=== PATIENT | male | born 1960 | race Caucasian/White ===

== ENCOUNTER → 2016-10-14 | Outpatient (CLI) | payer BC ==
[2016-10-14 08:39] LABS: CHLORIDE,CL 101 mmol/L (98-110); SODIUM,NA 136 mmol/L (136-146)
== END ==
LOC: MW.CHFP 07:49
PROVIDERS: ATTEND Nurse Practitioner Family
DX: E11.9 Type 2 diabetes mellitus without complications (principal); R80.9 Proteinuria, unspecified
CPT/HCPCS: 36415; 80053; 80061; 82044; 83036

== ENCOUNTER 2017-08-24 10:02 | Emergency (ER) | payer BC ==
--- NOTE | 2017-08-24 10:32 | EDM.PDOC ---
ED HPI GENERAL MEDICAL PROBLEM - General Chief Complaint: Abdominal Pain Stated Complaint: L LOWER ABD Time Seen by Provider: 08/24/17 10:32 Source of Information: Reports: Patient - History of Present Illness INITIAL COMMENTS - FREE TEXT/NARRATIVE: HISTORY AND PHYSICAL: History of present illness: [Patient with history of diverticulitis present with left lower quadrant pain 4 out of 10 increasing over last 24-48 hours no distress rates pain 3 out of 10 no fever vomiting chills sweats No chest pain shortness breath headache dizziness palpitation no urine symptoms ] Review of systems: As per history of present illness and below otherwise all systems reviewed and negative. Past medical history: As per history of present illness and as reviewed below otherwise noncontributory. Surgical history: As per history of present illness and as reviewed below otherwise noncontributory. Social history: No reported history of drug or alcohol abuse. Family history: As per history of present illness and as reviewed below otherwise noncontributory. Physical exam: HEENT: Atraumatic, normocephalic, pupils reactive, negative for conjunctival pallor or scleral icterus, mucous membranes moist, throat clear, neck supple, nontender, trachea midline. Lungs: Clear to auscultation, breath sounds equal bilaterally, chest nontender. Heart: S1S2, regular, negative for clicks, rubs, or JVD. Abdomen: Soft, nondistended, nontender in right upper and lower quadrant left lower quadrant is tender on deep palpation. Negative for masses or hepatosplenomegaly. Negative for costovertebral tenderness. Pelvis: Stable nontender. Genitourinary: No hernia appreciated no mass scar or lesion Rectal: Deferred. Extremities: Atraumatic, negative for cords or calf pain. Neurovascular unremarkable. Neuro: Awake, alert, oriented. Cranial nerves II through XII unremarkable. Cerebellum unremarkable. Motor and sensory unremarkable throughout. Exam nonfocal. Diagnostics: [CBC CMP cardiac enzymes UA ] Therapeutics: [Patient declines any pain medication at this time his pain is quite tolerable] Cipro 500 by mouth twice a day #20 no refill Impression: Mild diverticulitis [Abdominal pain] Definitive disposition and diagnosis as appropriate pending reevaluation and review of above. Left Lower Abdominal Pain Score (Numeric/FACES): 5 - Related Data Allergies Allergy/AdvReac Type Severity Reaction Status Date / Time No Known Allergies Allergy Verified 08/24/17 10:32 Home Meds: Home Meds Lisinopril [Lisinopril] 10 mg PO DAILY 02/20/15 [History] Simvastatin [Simvastatin] 10 mg PO DAILY 02/20/15 [History] metFORMIN HCl [Metformin HCl] 1,000 mg PO BID 02/20/15 [History] Aspirin [Halfprin] 81 mg PO ONETIME 05/21/15 [History] Glimepiride [Amaryl] 4 mg PO BID 05/21/15 [History] Chlorthalidone 25 mg PO DAILY 08/24/17 [History] Dapagliflozin Propanediol [Farxiga] 10 mg PO DAILY 08/24/17 [History] Krill/[place]-3/Dha/Epa/Lipids [[place]-3 Krill Oil 500 mg Sfgl] 1 cap PO DAILY [History] Social & Family History - Tobacco Use Smoking Status *Q: Never Smoker Second Hand Smoke Exposure: No - Recreational Drug Use Recreational Drug Use: No ED ROS GENERAL - Review of Systems Review Of Systems: ROS reveals no pertinent complaints other than HPI. ED EXAM, GENERAL - Physical Exam Exam: See Below Course - Vital Signs Last Recorded V/S: Last Vital Signs Temp 96.7 F 08/24/17 10:30 Pulse 102 H 08/24/17 11:39 Resp 18 08/24/17 11:39 BP 98/71 08/24/17 11:39 Pulse Ox 96 08/24/17 11:39 - Orders/Labs/Meds Orders: Active Orders 24 hr Category Date Time Status EKG 12 Lead [EKG Documentation Completion] [RC] STAT Care 08/24/17 10:31 Active Labs: Laboratory Tests 08/24/17 08/24/17 08/24/17 Range/Units 10:40 10:50 10:50 WBC 9.88 (4.0-11.0) K/uL RBC 4.88 (4.50-5.90) M/uL Hgb 15.8 (13.0-17.0) g/dL Hct 45.8 (38.0-50.0) % MCV 93.9 (80.0-98.0) fL MCH 32.4 H (27.0-32.0) pg MCHC 34.5 (31.0-37.0) g/dL RDW Std Deviation 45.5 (28.0-62.0) fl RDW Coeff of Brianna 13 (11.0-15.0) % Plt Count 249 (150-400) K/uL MPV 9.90 (7.40-12.00) fL Neut % (Auto) 78.2 (48.0-80.0) % Lymph % (Auto) 13.6 L (16.0-40.0) % [place] % (Auto) 6.6 (0.0-15.0) % Eos % (Auto) 1.2 (0.0-7.0) % Baso % (Auto) 0.4 (0.0-1.5) % Neut # (Auto) 7.7 H (1.4-5.7) K/uL Lymph # (Auto) 1.3 (0.6-2.4) K/uL [place] # (Auto) 0.7 (0.0-0.8) K/uL Eos # (Auto) 0.1 (0.0-0.7) K/uL Baso # (Auto) 0.0 (0.0-0.1) K/uL Nucleated RBC % 0.0 /100WBC Nucleated RBCs # 0 K/uL Sodium 136 (136-146) mmol/L Potassium 4.2 (3.5-5.1) mmol/L Chloride 99 (98-110) mmol/L Carbon Dioxide 25 (21-31) mmol/L BUN 16 (6.0-23.0) mg/dL Creatinine 1.1 (0.6-1.5) mg/dL Est Cr Clr Drug Dosing 78.91 mL/min Estimated GFR (MDRD) > 60.0 ml/min Glucose 168 H (60-110) mg/dL Calcium 9.7 (8.8-10.8) mg/dL Total Bilirubin 0.6 (0.1-1.5) mg/dL AST 13 (5-40) IU/L ALT 19 (8-54) IU/L Alkaline Phosphatase 64 (40-150) Troponin I < 0.10 (0.0-0.29) NG/ML Total Protein 7.6 (6.0-8.0) g/dL Albumin 4.4 (3.5-5.0) g/dL Globulin 3.2 (2.0-3.5) g/dL Albumin/Globulin Ratio 1.4 (1.3-2.8) Amylase 70 (10-90) U/L Lipase 29 (7-80) U/L Urine Color YELLOW Urine Appearance CLEAR Urine pH 6.0 (5.0-8.0) Ur Specific [place] 1.015 (1.001-1.035) Urine Protein NEGATIVE (NEGATIVE) mg/dL Urine Glucose (UA) >=1000 (NEGATIVE) mg/dL Urine Ketones NEGATIVE (NEGATIVE) mg/dL Urine Occult Blood NEGATIVE (NEGATIVE) Urine Nitrite NEGATIVE (NEGATIVE) Urine Bilirubin NEGATIVE (NEGATIVE) Urine Urobilinogen 0.2 (<2.0) EU/dL Ur Leukocyte Esterase NEGATIVE (NEGATIVE) Urine RBC 0-1 (0-2/HPF) Urine WBC 0-1 (0-5/HPF) Ur Epithelial Cells OCCASIONAL (NONE-FEW) Urine Bacteria RARE (NEGATIVE) Urine Mucus LIGHT (NONE-MOD) Departure - Departure Time of Disposition: 12:31 Disposition: Home, Self-Care 01 Condition: Good Clinical Impression: Diverticulitis - Discharge Information Referrals: Hali Burgos NP [Primary Care Provider] - Forms: ED Department Discharge Additional Instructions: Medication as prescribed Diet as discussed Return if symptoms persist or worsen or new concerning symptoms develop The following information is given to patients seen in the emergency department who are being discharged to home. This information is to outline your options for follow-up care. We provide all patients seen in our emergency department with a follow-up referral. The need for follow-up, as well as the timing and circumstances, are variable depending upon the specifics of your emergency department visit. If you don't have a primary care physician on staff, we will provide you with a referral. We always advise you to contact your personal physician following an emergency department visit to inform them of the circumstance of the visit and for follow-up with them and/or the need for any referrals to a consulting specialist. The emergency department will also refer you to a specialist when appropriate. This referral assures that you have the opportunity for follow-up care with a specialist. All of these measure are taken in an effort to provide you with optimal care, which includes your follow-up. Under all circumstances we always encourage you to contact your private physician who remains a resource for coordinating your care. When calling for follow-up care, please make the office aware that this follow-up is from your recent emergency room visit. If for any reason you are refused follow-up, please contact the [facility] emergency department at and asked to speak to the emergency department charge nurse. - My Orders Last 24 Hours: My Active Orders 08/24/17 10:31 EKG 12 Lead [EKG Documentation Completion] [RC] STAT - Assessment/Plan Last 24 Hours: My Active Orders 08/24/17 10:31 EKG 12 Lead [EKG Documentation Completion] [RC] STAT
[2017-08-24 11:37] LABS: CHLORIDE,CL 99 mmol/L (98-110); SODIUM,NA 136 mmol/L (136-146)
--- NOTE | 2017-08-24 12:23 | CR ---
Flat plate and upright films of the abdomen Clinical history pain Comparison: No similar Findings: There is no evidence of free air below the diaphragms. There is no evidence of significantl y dilated bowel. There is a likely lower pole renal calculus on the right with no definite evidence o f a calculus in the expected location of the ureter on the right. Images are degraded by patient's ob esity. Impression: Right nephrolithiasis. No other specific abnormal finding
[2017-08-24 12:49] VITALS: BP 105/66
== END 2017-08-24 12:39 | disposition home or self-care (01) ==
LOC: MW.ED 10:02
DX: K57.92 Diverticulitis of intestine, part unspecified, without perforation or abscess without bleeding (principal); Z79.84 Long term (current) use of oral hypoglycemic drugs; Z79.899 Other long term (current) drug therapy; Z79.82 Long term (current) use of aspirin
CPT/HCPCS: 36415; 74019; 74019-26; 80053; 81001; 82150; 83690; 84484; 85025; 93005; 99284-25

== ENCOUNTER 2017-12-04 09:51 | Day surgery (SDC) | payer BC ==
[~2017-12-04 09:51] MED LIST: Lactated Ringers 1,000 ML IV SCH; Lidocaine 2% 5 ML SDV ONE; Propofol 200 MG/20 ML SDV ONE; fentaNYL 100 MCG/2 ML SDV ONE
--- NOTE | 2017-12-04 10:26 | PCM.PREANE ---
Preanesthetic Assessment - Anesthesia/Transfusion/Family Hx Anesthesia History: Prior Anesthesia Without Reaction Family History of Anesthesia Reaction: No Transfusion History: No Prior Transfusion(s) Intubation History: Unknown - Review of Systems General: No Symptoms Pulmonary: No Symptoms Cardiovascular: No Symptoms Gastrointestinal: No Symptoms, Other (recent diverticulitis) Neurological: No Symptoms Other: Reports: None - Physical Assessment O2 Sat by Pulse Oximetry: 94 Respiratory Rate: 16 Vital Signs: Last Vital Signs Temp 36.4 C 12/04/17 10:16 Pulse 98 12/04/17 10:16 Resp 16 12/04/17 10:16 BP 130/82 12/04/17 10:16 Pulse Ox 94 L 12/04/17 10:16 Height: 1.8 m Weight: 131.995 kg ASA Class: 3 Mental Status: Alert & Oriented x3 Airway Class: Mallampati = 2 Dentition: Reports: Normal Dentition, Bridge (left lower (back)) Thyro-Mental Finger Breadths: 3 Mouth Opening Finger Breadths: 2 ROM/Head Extension: Full Lungs: Clear to Auscultation, Normal Respiratory Effort Cardiovascular: Regular Rate, Regular Rhythm - Allergies Allergies/Adverse Reactions: Allergies Allergy/AdvReac Type Severity Reaction Status Date / Time No Known Allergies Allergy Verified 12/02/17 07:39 - Blood Blood Available: No - Anesthesia Plan Pre-Op Medication Ordered: None - Acknowledgements Anesthesia Type Planned: MAC Pt an Appropriate Candidate for the Planned Anesthesia: Yes Alternatives and Risks of Anesthesia Discussed w Pt/Guardian: Yes Pt/Guardian Understands and Agrees with Anesthesia Plan: Yes PreAnesthesia Questionnaire Cardiovascular History: Reports: High Cholesterol, Hypertension Gastrointestinal History: Reports: GERD, Other (See Below) Other Gastrointestinal History: recent h/o diverticulitis, much better now Genitourinary History: Reports: Renal Calculus Endocrine/Metabolic History: Reports: Diabetes, Type II, Obesity/BMI 30+ - Infectious Disease History Infectious Disease History: Reports: Chicken Pox, Measles, Mumps - Past Surgical History Head Surgeries/Procedures: Reports: None Male Surgical History: Reports: Lithotripsy (ESWL), Renal Calculus - SUBSTANCE USE Smoking Status *Q: Never Smoker Second Hand Smoke Exposure: No Recreational Drug Use History: No - HOME MEDS Home Medications: Home Meds Lisinopril 10 mg PO DAILY 02/20/15 [History] Simvastatin 10 mg PO DAILY 02/20/15 [History] metFORMIN HCl [Metformin HCl] 1,000 mg PO BID 02/20/15 [History] Aspirin [Halfprin] 81 mg PO DAILY 05/21/15 [History] Chlorthalidone 25 mg PO DAILY 08/24/17 [History] Dapagliflozin Propanediol [Farxiga] 10 mg PO DAILY 08/24/17 [History] Glimepiride 4 mg PO BID 12/02/17 [History] - CURRENT (IN HOUSE) MEDS Current Meds: Current Medications Lactated Ringer's (Ringers, Lactated) 1,000 mls @ 125 mls/hr IV ASDIRECTED ARLYN Last Admin: 12/04/17 10:17 Dose: 125 mls/hr Discontinued Medications Fentanyl (Sublimaze) Confirm Administered Dose 100 mcg .ROUTE .STK-MED ONE Stop: 12/04/17 08:47 Lidocaine (Xylocaine-Mpf 2%) Confirm Administered Dose 5 ml .ROUTE .STK-MED ONE Stop: 12/04/17 08:46 Propofol (Diprivan 20 Ml) Confirm Administered Dose 400 mg .ROUTE .STK-MED ONE Stop: 12/04/17 08:47
--- NOTE | 2017-12-04 11:22 | PCM.OPNOTE ---
- General Post-Op/Procedure Note Date of Surgery/Procedure: 12/04/17 Operative Procedure(s): Colonoscopy Pre Op Diagnosis: Desire for colorectal cancer screening Post-Op Diagnosis: Sigmoid diverticulosis Anesthesia Technique: MAC (ASA III) Primary Surgeon: Rafal Hickman Condition: Good Free Text/Narrative:: Dictation [id number] CPT CODE 26087
[2017-12-04] MEDS ORDERED: Lactated Ringers 1,000 ML IV SCH (11:30)
[2017-12-04 12:09] VITALS: BP 117/75
--- NOTE | 2017-12-04 12:40 | PCM.POSTAN ---
POST ANESTHESIA ASSESSMENT - MENTAL STATUS Mental Status: Alert, Oriented - RESPIRATORY Respiratory Status: Respiratory Rate WNL, Airway Patent, O2 Saturation Stable - CARDIOVASCULAR CV Status: Pulse Rate WNL, Blood Pressure Stable - GASTROINTESTINAL GI Status: No Symptoms - POST OP HYDRATION Hydration Status: Adequate & Stable
--- NOTE | 2017-12-04 12:43 | PCM48HPAN ---
Post Anesthesia Note - EVALUATION WITHIN 48HRS OF ANESTHETIC Vital Signs in Normal Range: Yes Patient Participated in Evaluation: Yes Respiratory Function Stable: Yes Airway Patent: Yes Cardiovascular Function Stable: Yes Hydration Status Stable: Yes Pain Control Satisfactory: Yes Nausea and Vomiting Control Satisfactory: Yes Mental Status Recovered: Yes Resp Rate: 16
--- NOTE | 2017-12-04 16:55 | OR ---
SURGEON: Rafal Hickman M.D. DATE OF PROCEDURE: 12/04/2017 OPERATION PERFORMED: Colonoscopy. ANESTHESIA: MAC. CITIZEN OF [place] [employer] CLASSIFICATION: III. PREOPERATIVE DIAGNOSIS: Desire for colorectal cancer screening. POSTOPERATIVE DIAGNOSIS: Sigmoid diverticulosis. DESCRIPTION OF PROCEDURE: The patient was taken to the endoscopy room and positioned on the endoscopy table in the left lateral decubitus position. Time-out was called for appropriate identification of the patient and procedure. Monitored anesthesia care was provided. The colonoscope was inserted into the rectum and advanced with minimal difficulty to the cecum, where the colonoscope was retroflexed to visualize the ascending colon from below. The colonoscope was then straightened and slowly withdrawn. The cecum, ascending colon, hepatic flexure, transverse colon, splenic flexure, and descending colon showed no tumors, polyps, diverticula, or angiodysplastic changes. There was no evidence of inflammatory bowel disease. Once the colonoscope was withdrawn to the sigmoid colon, moderate diverticular disease is noted. No stricture, spasm, or bleeding was noted; and no polyps were encountered in the sigmoid colon. Once the colonoscope was withdrawn to the rectum, it was retroflexed to visualize the anal orifice from above. No tumors, polyps, or acute hemorrhoidal changes are noted. The colonoscope was then straightened, the rectum aspirated, and the colonoscope removed. The patient tolerated the procedure well and was taken to the recovery room in satisfactory condition. CLARENCE RICO /[id number]
== END 2017-12-04 11:40 | disposition home or self-care (01) ==
LOC: MW.SDS 09:51
PROVIDERS: ATTEND Surgery
DX: Z12.11 Encounter for screening for malignant neoplasm of colon (principal); K57.30 Diverticulosis of large intestine without perforation or abscess without bleeding; K21.9 Gastro-esophageal reflux disease without esophagitis; J30.9 Allergic rhinitis, unspecified; E78.00 Pure hypercholesterolemia, unspecified; E78.1 Pure hyperglyceridemia; I10 Essential (primary) hypertension; M75.40 Impingement syndrome of unspecified shoulder; M17.11 Unilateral primary osteoarthritis, right knee; R80.9 Proteinuria, unspecified; E11.9 Type 2 diabetes mellitus without complications; E66.9 Obesity, unspecified; Z68.41 Body mass index [BMI] 40.0-44.9, adult; Z79.82 Long term (current) use of aspirin; Z79.84 Long term (current) use of oral hypoglycemic drugs; Z79.899 Other long term (current) drug therapy; Z98.890 Other specified postprocedural states
CPT/HCPCS: 82962; J2704; J3010; J7120

== ENCOUNTER 2018-12-10 17:07 | Emergency (ER) | payer BC ==
[2018-12-10] MEDS ORDERED: Sodium Chloride 0.9% 10 ML Syringe FLUSH PRN (17:33)
[2018-12-10] MEDS ORDERED: Sodium Chloride 0.9% 1,000 ML IV ONE (17:33)
[2018-12-10] MEDS ORDERED: Sodium Chloride 0.9% 2.5 ML Syringe FLUSH PRN (17:33)
[2018-12-10] MEDS ORDERED: Meclizine 25 MG Tab PO ONE (17:34)
--- NOTE | 2018-12-10 17:37 | EDM.PDOC ---
ED HPI GENERAL MEDICAL PROBLEM - General Chief Complaint: General Stated Complaint: DIZZY Time Seen by Provider: 12/10/18 17:24 - History of Present Illness INITIAL COMMENTS - FREE TEXT/NARRATIVE: HISTORY AND PHYSICAL: History of present illness: Patient's 58-year-old white male presents with a concern of dizziness since last night he states this is with any movement or change in position he states he went to sleep with that awoke with a and has difficulty walking due to unsteadiness related to what he describes as dizziness this is somewhat vaguely described is not qualified as particularly spinning or himself more as an unsteadiness. Review of systems: As per history of present illness and below otherwise all systems reviewed and negative. Past medical history: As per history of present illness and as reviewed below otherwise noncontributory. Surgical history: As per history of present illness and as reviewed below otherwise noncontributory. Social history: No reported history of drug or alcohol abuse. Family history: As per history of present illness and as reviewed below otherwise noncontributory. Physical exam: HEENT: Atraumatic, normocephalic, pupils reactive, negative for conjunctival pallor or scleral icterus, mucous membranes moist, throat clear, neck supple, nontender, trachea midline. TMs clear bilaterally Lungs: Clear to auscultation, breath sounds equal bilaterally, chest nontender. Heart: S1S2, regular, negative for clicks, rubs, or JVD. Abdomen: Soft, nondistended, nontender. Negative for masses or hepatosplenomegaly. Negative for costovertebral tenderness. Pelvis: Stable nontender. Genitourinary: Deferred. Rectal: Deferred. Extremities: Atraumatic, negative for cords or calf pain. Neurovascular unremarkable. Neuro: Awake, alert, oriented. Cranial nerves II through XII unremarkable. Ataxic gait noted. Motor and sensory unremarkable throughout. Exam nonfocal. Diagnostics: CBC CMP troponin PT/INR chest x-ray EKG CT brain orthostatic vital signs Therapeutics: Saline 1 L bolus meclizine 25 mg by mouth Impression: #1 dizziness with ataxia Definitive disposition and diagnosis as appropriate pending reevaluation and review of above. - Related Data Allergies Allergy/AdvReac Type Severity Reaction Status Date / Time No Known Allergies Allergy Verified 12/10/18 17:28 Home Meds: Home Meds Lisinopril 10 mg PO DAILY 02/20/15 [History] Simvastatin 10 mg PO DAILY 02/20/15 [History] metFORMIN HCl [Metformin HCl] 1,000 mg PO BID 02/20/15 [History] Aspirin [Halfprin] 81 mg PO DAILY 05/21/15 [History] Chlorthalidone 25 mg PO DAILY 08/24/17 [History] Allopurinol [Zyloprim] 300 mg PO DAILY 12/10/18 [History] Dulaglutide [Trulicity] 1.5 mg IM WEEKLY 12/10/18 [History] Empagliflozin [Jardiance] 10 mg PO DAILY 12/10/18 [History] Past Medical History Cardiovascular History: Reports: High Cholesterol, Hypertension Gastrointestinal History: Reports: GERD, Other (See Below) Other Gastrointestinal History: recent h/o diverticulitis, much better now Genitourinary History: Reports: Renal Calculus Musculoskeletal History: Reports: Gout Endocrine/Metabolic History: Reports: Diabetes, Type II, Obesity/BMI 30+ - Infectious Disease History Infectious Disease History: Reports: Chicken Pox, Measles, Mumps - Past Surgical History Head Surgeries/Procedures: Reports: None Male Surgical History: Reports: Lithotripsy (ESWL), Renal Calculus Social & Family History - Family History Family Medical History: Noncontributory - Tobacco Use Smoking Status *Q: Never Smoker - Recreational Drug Use Recreational Drug Use: No ED ROS GENERAL - Review of Systems Review Of Systems: ROS reveals no pertinent complaints other than HPI. ED EXAM, GENERAL - Physical Exam Exam: See Below (Dictation) Course - Vital Signs Text/Narrative:: Patient emergency department course has been unremarkable he has improvement status post meclizine diagnostics were unremarkable I discussed with patient admission for observation patient requests discharge home he understands risks and benefit has a scheduled appointment was private doctor mildly be discharged on meclizine is a return for recurrence or persistence or worsening. Last Recorded V/S: Last Vital Signs Temp 36.1 C 12/10/18 17:23 Pulse 92 12/10/18 19:02 Resp 18 12/10/18 19:02 BP 133/85 12/10/18 19:02 Pulse Ox 94 L 12/10/18 19:02 - Orders/Labs/Meds Orders: Active Orders 24 hr Category Date Time Status Cardiac Monitoring [RC] . DIRECTED Care 12/10/18 17:33 Active EKG Documentation Completion [RC] STAT Care 12/10/18 17:33 Active Pulse Oximetry [RC] ASDIRECTED Care 12/10/18 17:33 Active Sodium Chloride 0.9% [Saline Flush] Med 12/10/18 17:33 Active 10 ml FLUSH ASDIRECTED PRN Sodium Chloride 0.9% [Saline Flush] Med 12/10/18 17:33 Active 2.5 ml FLUSH ASDIRECTED PRN Saline Lock Insert [OM.PC] Stat Oth 12/10/18 17:33 Ordered Medication Orders Sodium Chloride (Saline Flush) 10 ml FLUSH ASDIRECTED PRN PRN Reason: Keep Vein Open Last Admin: 12/10/18 17:55 Dose: 10 ml Sodium Chloride (Saline Flush) 2.5 ml FLUSH ASDIRECTED PRN PRN Reason: Keep Vein Open Last Admin: 12/10/18 17:55 Dose: 2.5 ml Labs: Laboratory Tests 12/10/18 12/10/18 12/10/18 Range/Units 17:50 17:50 17:50 WBC 6.83 (4.0-11.0) K/uL RBC 5.11 (4.50-5.90) M/uL Hgb 16.4 (13.0-17.0) g/dL Hct 48.4 (38.0-50.0) % MCV 94.7 (80.0-98.0) fL MCH 32.1 H (27.0-32.0) pg MCHC 33.9 (31.0-37.0) g/dL RDW Std Deviation 46.3 (28.0-62.0) fl RDW Coeff of Brianna 13 (11.0-15.0) % Plt Count 228 (150-400) K/uL MPV 10.00 (7.40-12.00) fL Neut % (Auto) 68.5 (48.0-80.0) % Lymph % (Auto) 19.5 (16.0-40.0) % [place] % (Auto) 9.1 (0.0-15.0) % Eos % (Auto) 2.3 (0.0-7.0) % Baso % (Auto) 0.6 (0.0-1.5) % Neut # (Auto) 4.7 (1.4-5.7) K/uL Lymph # (Auto) 1.3 (0.6-2.4) K/uL [place] # (Auto) 0.6 (0.0-0.8) K/uL Eos # (Auto) 0.2 (0.0-0.7) K/uL Baso # (Auto) 0.0 (0.0-0.1) K/uL Nucleated RBC % 0.0 /100WBC Nucleated RBCs # 0 K/uL INR 1.01 Sodium 138 (136-148) mmol/L Potassium 3.7 (3.5-5.1) mmol/L Chloride 100 (98-107) mmol/L Carbon Dioxide 26.0 (21.0-32.0) mmol/L BUN 23 H (7.0-18.0) mg/dL Creatinine 1.2 (0.8-1.3) mg/dL Est Cr Clr Drug Dosing 71.47 mL/min Estimated GFR (MDRD) > 60.0 ml/min Glucose 130 H (74-106) mg/dL Calcium 9.4 (8.5-10.1) mg/dL Total Bilirubin 0.4 (0.2-1.0) mg/dL AST 13 L (15-37) IU/L ALT 21 (14-63) IU/L Alkaline Phosphatase 77 (46-116) U/L Troponin I < 0.050 (0.000-0.056) ng/mL Total Protein 7.8 (6.4-8.2) g/dL Albumin 4.1 (3.4-5.0) g/dL Globulin 3.7 (2.6-4.0) g/dL Albumin/Globulin Ratio 1.1 (0.9-1.6) Urine Color Urine Appearance Urine pH (5.0-8.0) Ur Specific [place] (1.001-1.035) Urine Protein (NEGATIVE) mg/dL Urine Glucose (UA) (NEGATIVE) mg/dL Urine Ketones (NEGATIVE) mg/dL Urine Occult Blood (NEGATIVE) Urine Nitrite (NEGATIVE) Urine Bilirubin (NEGATIVE) Urine Urobilinogen (<2.0) EU/dL Ur Leukocyte Esterase (NEGATIVE) 12/10/18 Range/Units 18:55 WBC (4.0-11.0) K/uL RBC (4.50-5.90) M/uL Hgb (13.0-17.0) g/dL Hct (38.0-50.0) % MCV (80.0-98.0) fL MCH (27.0-32.0) pg MCHC (31.0-37.0) g/dL RDW Std Deviation (28.0-62.0) fl RDW Coeff of Brianna (11.0-15.0) % Plt Count (150-400) K/uL MPV (7.40-12.00) fL Neut % (Auto) (48.0-80.0) % Lymph % (Auto) (16.0-40.0) % [place] % (Auto) (0.0-15.0) % Eos % (Auto) (0.0-7.0) % Baso % (Auto) (0.0-1.5) % Neut # (Auto) (1.4-5.7) K/uL Lymph # (Auto) (0.6-2.4) K/uL [place] # (Auto) (0.0-0.8) K/uL Eos # (Auto) (0.0-0.7) K/uL Baso # (Auto) (0.0-0.1) K/uL Nucleated RBC % /100WBC Nucleated RBCs # K/uL INR Sodium (136-148) mmol/L Potassium (3.5-5.1) mmol/L Chloride (98-107) mmol/L Carbon Dioxide (21.0-32.0) mmol/L BUN (7.0-18.0) mg/dL Creatinine (0.8-1.3) mg/dL Est Cr Clr Drug Dosing mL/min Estimated GFR (MDRD) ml/min Glucose (74-106) mg/dL Calcium (8.5-10.1) mg/dL Total Bilirubin (0.2-1.0) mg/dL AST (15-37) IU/L ALT (14-63) IU/L Alkaline Phosphatase (46-116) U/L Troponin I (0.000-0.056) ng/mL Total Protein (6.4-8.2) g/dL Albumin (3.4-5.0) g/dL Globulin (2.6-4.0) g/dL Albumin/Globulin Ratio (0.9-1.6) Urine Color YELLOW Urine Appearance CLEAR Urine pH 5.5 (5.0-8.0) Ur Specific [place] 1.020 (1.001-1.035) Urine Protein NEGATIVE (NEGATIVE) mg/dL Urine Glucose (UA) >=1000 (NEGATIVE) mg/dL Urine Ketones NEGATIVE (NEGATIVE) mg/dL Urine Occult Blood NEGATIVE (NEGATIVE) Urine Nitrite NEGATIVE (NEGATIVE) Urine Bilirubin NEGATIVE (NEGATIVE) Urine Urobilinogen 0.2 (<2.0) EU/dL Ur Leukocyte Esterase NEGATIVE (NEGATIVE) Meds: Medications Generic Name Dose Route Start Last Admin Trade Name Freq PRN Reason Stop Dose Admin Sodium Chloride 10 ml 12/10/18 17:33 12/10/18 17:55 Saline Flush FLUSH 10 ml ASDIRECTED PRN Administration Keep Vein Open Sodium Chloride 2.5 ml 12/10/18 17:33 12/10/18 17:55 Saline Flush FLUSH 2.5 ml ASDIRECTED PRN Administration Keep Vein Open Discontinued Medications Generic Name Dose Route Start Last Admin Trade Name Freq PRN Reason Stop Dose Admin Sodium Chloride 1,000 mls @ 999 mls/hr 12/10/18 17:33 12/10/18 17:54 Normal Saline IV 12/10/18 18:33 999 mls/hr STAT ONE Administration Meclizine HCl 25 mg 12/10/18 17:34 12/10/18 17:54 Antivert PO 12/10/18 17:35 25 mg ONETIME ONE Administration Departure - Departure Time of Disposition: 19:21 Disposition: Home, Self-Care 01 Condition: Good Clinical Impression: Dizziness - Discharge Information Referrals: Darrian Barrera MD [Primary Care Provider] - Forms: ED Department Discharge Additional Instructions: The following information is given to patients seen in the emergency department who are being discharged to home. This information is to outline your options for follow-up care. We provide all patients seen in our emergency department with a follow-up referral. The need for follow-up, as well as the timing and circumstances, are variable depending upon the specifics of your emergency department visit. If you don't have a primary care physician on staff, we will provide you with a referral. We always advise you to contact your personal physician following an emergency department visit to inform them of the circumstance of the visit and for follow-up with them and/or the need for any referrals to a consulting specialist. The emergency department will also refer you to a specialist when appropriate. This referral assures that you have the opportunity for followup care with a specialist. All of these measure are taken in an effort to provide you with optimal care, which includes your followup. Under all circumstances we always encourage you to contact your private physician who remains a resource for coordinating your care. When calling for followup care, please make the office aware that this follow-up is from your recent emergency room visit. If for any reason you are refused follow-up, please contact the [facility] emergency department at and asked to speak to the emergency department charge nurse. Keep scheduled appointment with private medical doctor pedro as prescribed and return as needed as discussed - My Orders Last 24 Hours: My Active Orders 12/10/18 17:33 Cardiac Monitoring [RC] . DIRECTED EKG Documentation Completion [RC] STAT Pulse Oximetry [RC] ASDIRECTED Sodium Chloride 0.9% [Saline Flush] 10 ml FLUSH ASDIRECTED PRN Sodium Chloride 0.9% [Saline Flush] 2.5 ml FLUSH ASDIRECTED PRN Saline Lock Insert [OM.PC] Stat - Assessment/Plan Last 24 Hours: My Active Orders 12/10/18 17:33 Cardiac Monitoring [RC] . DIRECTED EKG Documentation Completion [RC] STAT Pulse Oximetry [RC] ASDIRECTED Sodium Chloride 0.9% [Saline Flush] 10 ml FLUSH ASDIRECTED PRN Sodium Chloride 0.9% [Saline Flush] 2.5 ml FLUSH ASDIRECTED PRN Saline Lock Insert [OM.PC] Stat
[2018-12-10 18:29] LABS: CHLORIDE,CL 100 mmol/L (98-107); SODIUM,NA 138 mmol/L (136-148)
--- NOTE | 2018-12-10 18:55 | CR ---
INDICATION: Pain with dizziness and vomiting. TECHNIQUE: Chest 1 view. COMPARISON: None FINDINGS: Cardiovascular and mediastinum: Heart size and vasculature are normal in caliber and appearance. Mediastinum is within normal limits. Lungs and pleural space: Lungs are clear. No sign of infiltrate or mass. No sign of pleural effusion. No pneumothorax. Bones and soft tissues: No significant findings. IMPRESSION: Unremarkable chest. Dictated by Rajesh Tucker MD @ Dec 10 2018 6:52PM Signed by Dr. Rajesh Tucker @ Dec 10 2018 6:52PM
--- NOTE | 2018-12-10 18:55 | CT ---
INDICATION: Headache. Dizziness and vomiting. TECHNIQUE: CT Head without contrast. COMPARISON: None. FINDINGS: CSF spaces: Within normal limits for age. Brain parenchyma: The sands-white differentiation is normal. No sign of mass, hemorrhage, or midline shift. Skull base and calvarium: The visualized paranasal sinuses and mastoid air cells are clear. The visualized orbits are grossly unremarkable. No skull fractures. . IMPRESSION: Unremarkable noncontrast head CT. Please note that all CT scans at this facility use dose modulation, iterative reconstruction, and/or weight-based dosing when appropriate to reduce radiation dose to as low as reasonably achievable. Dictated by Rajesh Tucker MD @ Dec 10 2018 6:50PM Signed by Dr. Rajesh Tucker @ Dec 10 2018 6:52PM
[2018-12-10 19:35] VITALS: BP 134/87
== END 2018-12-10 19:35 | disposition home or self-care (01) ==
LOC: MW.ED 17:07
DX: R42 Dizziness and giddiness (principal); E78.00 Pure hypercholesterolemia, unspecified; I10 Essential (primary) hypertension; E11.9 Type 2 diabetes mellitus without complications; Z79.899 Other long term (current) drug therapy
CPT/HCPCS: 70450; 71045; 80053; 81003; 84484; 85025; 85610; 93005; 96360; 99284; A9270; J7040

== ENCOUNTER 2020-02-28 14:11 | Emergency (ER) | payer BC, OTHER ==
[2020-02-28] MEDS ORDERED: Sodium Chloride 0.9% 2.5 ML Syringe FLUSH PRN (14:40)
[2020-02-28] MEDS ORDERED: Sodium Chloride 0.9% 10 ML Syringe FLUSH PRN (14:40)
[2020-02-28] MEDS ORDERED: Sodium Chloride 0.9% 1,000 ML IV ONE (14:42)
[2020-02-28] MEDS ORDERED: Ondansetron 4 MG/2 ML SDV IVPUSH ONE (14:42)
--- NOTE | 2020-02-28 14:52 | EDM.PDOC ---
ED HPI GENERAL MEDICAL PROBLEM - General Chief Complaint: Gastrointestinal Problem Stated Complaint: HIGH FEVER, DIARRHEA Time Seen by Provider: 02/28/20 14:13 Source of Information: Reports: Patient History Limitations: Reports: No Limitations - History of Present Illness INITIAL COMMENTS - FREE TEXT/NARRATIVE: Since reporting diarrhea, fever, anorexia, and weakness since February 22. He states he has been drinking plenty of water. He has eaten very little. The highest his temperature got at home is 100.1. He denies dysuria, abdominal pain, nausea, vomiting except once this morning. He has a little cough in the morning. He states his diarrhea has been about 4 times a day and is watery. He denies any unusual travel and no ill contacts. He has a medical history of diabetes mellitus type 2, hypertension, gout, and dyslipidemia as well as obesity. 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 - Related Data Allergies Allergy/AdvReac Type Severity Reaction Status Date / Time No Known Allergies Allergy Verified 02/28/20 14:25 Home Meds: Home Meds Lisinopril 10 mg PO DAILY 02/20/15 [History] Simvastatin 10 mg PO DAILY 02/20/15 [History] metFORMIN HCl [Metformin HCl] 1,000 mg PO BID 02/20/15 [History] Aspirin [Halfprin] 81 mg PO DAILY 05/21/15 [History] Chlorthalidone 25 mg PO DAILY 08/24/17 [History] Empagliflozin [Jardiance] 10 mg PO DAILY 12/10/18 [History] allopurinoL [Zyloprim] 300 mg PO DAILY 12/10/18 [History] Glimepiride 2 mg PO DAILY 02/28/20 [History] Past Medical History HEENT History: Reports: Cataract Cardiovascular History: Reports: High Cholesterol, Hypertension Respiratory History: Reports: None Gastrointestinal History: Reports: Diverticulosis, GERD Other Gastrointestinal History: recent h/o diverticulitis, much better now Genitourinary History: Reports: Renal Calculus Musculoskeletal History: Reports: Gout Neurological History: Reports: None Psychiatric History: Reports: None Endocrine/Metabolic History: Reports: Diabetes, Type II, Obesity/BMI 30+ Hematologic History: Reports: None Immunologic History: Reports: None Oncologic (Cancer) History: Reports: None Dermatologic History: Reports: None - Infectious Disease History Infectious Disease History: Reports: Chicken Pox - Past Surgical History Head Surgeries/Procedures: Reports: None HEENT Surgical History: Reports: Cataract Surgery, Oral Surgery GI Surgical History: Reports: Colonoscopy Male Surgical History: Reports: Kidney Stone Extraction, Lithotripsy (ESWL), Renal Calculus Social & Family History - Family History Family Medical History: Noncontributory - Tobacco Use Smoking Status *Q: Never Smoker - Recreational Drug Use Recreational Drug Use: No ED ROS GENERAL - Review of Systems Review Of Systems: Comprehensive ROS is negative, except as noted in HPI. ED EXAM, GI/ABD - Physical Exam Exam: See Below Exam Limited By: No Limitations General Appearance: Alert, No Apparent Distress Ears: Normal External Exam Nose: Normal Inspection Throat/Mouth: Normal Inspection Head: Atraumatic, Normocephalic Neck: Normal Inspection Respiratory/Chest: No Respiratory Distress, Lungs Clear, Normal Breath Sounds Cardiovascular: Normal Peripheral Pulses, Regular Rate, Rhythm, No Murmur GI/Abdominal Exam: Normal Bowel Sounds, Soft, Non-Tender, No Distention Back Exam: Normal Inspection Extremities: Normal Inspection, Normal Range of Motion Neurological: Alert, Oriented, Normal Cognition Psychiatric: Normal Affect, Normal Mood Skin Exam: Warm, Dry, Intact, Normal Color, No Rash Lymphatic: No Adenopathy Course - Vital Signs Last Recorded V/S: Last Vital Signs Temp 37.3 C 02/28/20 14:22 Pulse 92 02/28/20 15:04 Resp 18 02/28/20 14:22 BP 103/69 02/28/20 15:04 Pulse Ox 91 L 02/28/20 15:04 - Orders/Labs/Meds Orders: Active Orders 24 hr Category Date Time Status Sodium Chloride 0.9% [Saline Flush] Med 02/28/20 14:40 Ordered 10 ml FLUSH ASDIRECTED PRN Sodium Chloride 0.9% [Saline Flush] Med 02/28/20 14:40 Ordered 2.5 ml FLUSH ASDIRECTED PRN Saline Lock Insert [OM.PC] Stat Oth 02/28/20 14:40 Ordered Medication Orders Sodium Chloride (Saline Flush) 10 ml FLUSH ASDIRECTED PRN PRN Reason: Keep Vein Open Last Admin: 02/28/20 14:57 Dose: 10 ml Documented by: VIALMEL Sodium Chloride (Saline Flush) 2.5 ml FLUSH ASDIRECTED PRN PRN Reason: Keep Vein Open Last Admin: 02/28/20 14:57 Dose: 2.5 ml Documented by: PEDRO LUIS Labs: Laboratory Tests 02/28/20 02/28/20 02/28/20 Range/Units 14:30 14:30 15:45 WBC 5.13 (4.0-11.0) K/uL RBC 5.06 (4.50-5.90) M/uL Hgb 16.4 (13.0-17.0) g/dL Hct 47.0 (38.0-50.0) % MCV 92.9 (80.0-98.0) fL MCH 32.4 H (27.0-32.0) pg MCHC 34.9 (31.0-37.0) g/dL RDW Std Deviation 46.0 (28.0-62.0) fl RDW Coeff of Brianna 13 (11.0-15.0) % Plt Count 144 L (150-400) K/uL MPV 10.20 (7.40-12.00) fL Neut % (Auto) 75.8 (48.0-80.0) % Lymph % (Auto) 13.5 L (16.0-40.0) % [place] % (Auto) 10.7 (0.0-15.0) % Eos % (Auto) 0.0 (0.0-7.0) % Baso % (Auto) 0.0 (0.0-1.5) % Neut # (Auto) 3.9 (1.4-5.7) K/uL Lymph # (Auto) 0.7 (0.6-2.4) K/uL [place] # (Auto) 0.6 (0.0-0.8) K/uL Eos # (Auto) 0.0 (0.0-0.7) K/uL Baso # (Auto) 0.0 (0.0-0.1) K/uL Nucleated RBC % 0.0 /100WBC Nucleated RBCs # 0 K/uL Sodium 127 L (136-148) mmol/L Potassium 3.7 (3.5-5.1) mmol/L Chloride 92 L (98-107) mmol/L Carbon Dioxide 22.9 (21.0-32.0) mmol/L BUN 24 H (7.0-18.0) mg/dL Creatinine 1.2 (0.8-1.3) mg/dL Est Cr Clr Drug Dosing 67.59 mL/min Estimated GFR (MDRD) > 60.0 ml/min Glucose 152 H (74-106) mg/dL Calcium 8.4 L (8.5-10.1) mg/dL Total Bilirubin 0.4 (0.2-1.0) mg/dL AST 38 H (15-37) IU/L ALT 32 (14-63) IU/L Alkaline Phosphatase 69 (46-116) U/L Total Protein 7.7 (6.4-8.2) g/dL Albumin 3.6 (3.4-5.0) g/dL Globulin 4.1 H (2.6-4.0) g/dL Albumin/Globulin Ratio 0.9 (0.9-1.6) Urine Color YELLOW Urine Appearance CLEAR Urine pH 5.5 (5.0-8.0) Ur Specific [place] 1.020 (1.001-1.035) Urine Protein NEGATIVE (NEGATIVE) mg/dL Urine Glucose (UA) >=1000 (NEGATIVE) mg/dL Urine Ketones 15 H (NEGATIVE) mg/dL Urine Occult Blood SMALL H (NEGATIVE) Urine Nitrite NEGATIVE (NEGATIVE) Urine Bilirubin NEGATIVE (NEGATIVE) Urine Urobilinogen 0.2 (<2.0) EU/dL Ur Leukocyte Esterase SMALL H (NEGATIVE) Urine RBC 1-2 (0-2/HPF) Urine WBC 10-12 (0-5/HPF) Ur Epithelial Cells FEW (NONE-FEW) Urine Bacteria 1+ H (NEGATIVE) COVID-19 (RACHNA) (NEGATIVE) 02/28/20 Range/Units 16:00 WBC (4.0-11.0) K/uL RBC (4.50-5.90) M/uL Hgb (13.0-17.0) g/dL Hct (38.0-50.0) % MCV (80.0-98.0) fL MCH (27.0-32.0) pg MCHC (31.0-37.0) g/dL RDW Std Deviation (28.0-62.0) fl RDW Coeff of Brianna (11.0-15.0) % Plt Count (150-400) K/uL MPV (7.40-12.00) fL Neut % (Auto) (48.0-80.0) % Lymph % (Auto) (16.0-40.0) % [place] % (Auto) (0.0-15.0) % Eos % (Auto) (0.0-7.0) % Baso % (Auto) (0.0-1.5) % Neut # (Auto) (1.4-5.7) K/uL Lymph # (Auto) (0.6-2.4) K/uL [place] # (Auto) (0.0-0.8) K/uL Eos # (Auto) (0.0-0.7) K/uL Baso # (Auto) (0.0-0.1) K/uL Nucleated RBC % /100WBC Nucleated RBCs # K/uL Sodium (136-148) mmol/L Potassium (3.5-5.1) mmol/L Chloride (98-107) mmol/L Carbon Dioxide (21.0-32.0) mmol/L BUN (7.0-18.0) mg/dL Creatinine (0.8-1.3) mg/dL Est Cr Clr Drug Dosing mL/min Estimated GFR (MDRD) ml/min Glucose (74-106) mg/dL Calcium (8.5-10.1) mg/dL Total Bilirubin (0.2-1.0) mg/dL AST (15-37) IU/L ALT (14-63) IU/L Alkaline Phosphatase (46-116) U/L Total Protein (6.4-8.2) g/dL Albumin (3.4-5.0) g/dL Globulin (2.6-4.0) g/dL Albumin/Globulin Ratio (0.9-1.6) Urine Color Urine Appearance Urine pH (5.0-8.0) Ur Specific [place] (1.001-1.035) Urine Protein (NEGATIVE) mg/dL Urine Glucose (UA) (NEGATIVE) mg/dL Urine Ketones (NEGATIVE) mg/dL Urine Occult Blood (NEGATIVE) Urine Nitrite (NEGATIVE) Urine Bilirubin (NEGATIVE) Urine Urobilinogen (<2.0) EU/dL Ur Leukocyte Esterase (NEGATIVE) Urine RBC (0-2/HPF) Urine WBC (0-5/HPF) Ur Epithelial Cells (NONE-FEW) Urine Bacteria (NEGATIVE) COVID-19 (RACHNA) POSITIVE H (NEGATIVE) Meds: Medications Generic Name Dose Route Start Last Admin Trade Name Freq PRN Reason Stop Dose Admin Sodium Chloride 10 ml 02/28/20 14:40 02/28/20 14:57 Saline Flush FLUSH 10 ml ASDIRECTED PRN Administration Keep Vein Open Sodium Chloride 2.5 ml 02/28/20 14:40 02/28/20 14:57 Saline Flush FLUSH 2.5 ml ASDIRECTED PRN Administration Keep Vein Open Discontinued Medications Generic Name Dose Route Start Last Admin Trade Name Freq PRN Reason Stop Dose Admin Sodium Chloride 1,000 mls @ 999 mls/hr 02/28/20 14:42 02/28/20 14:57 Normal Saline IV 02/28/20 15:42 999 mls/hr STAT ONE Administration Ondansetron HCl 4 mg 02/28/20 14:42 02/28/20 14:57 Zofran IVPUSH 02/28/20 14:43 4 mg ONETIME ONE Administration Departure - Departure Time of Disposition: 16:37 Disposition: Home, Self-Care 01 Condition: Good Clinical Impression: COVID-19 - Discharge Information *PRESCRIPTION DRUG MONITORING PROGRAM REVIEWED*: Not Applicable *COPY OF PRESCRIPTION DRUG MONITORING REPORT IN PATIENT AUDREY: Not Applicable Referrals: Darrian Barrera MD [Primary Care Provider] - Forms: ED Department Discharge Additional Instructions: The following information is given to patients seen in the emergency department who are being discharged to home. This information is to outline your options for follow-up care. We provide all patients seen in our emergency department with a follow-up referral. The need for follow-up, as well as the timing and circumstances, are variable depending upon the specifics of your emergency department visit. If you don't have a primary care physician on staff, we will provide you with a referral. We always advise you to contact your personal physician following an emergency department visit to inform them of the circumstance of the visit and for follow-up with them and/or the need for any referrals to a consulting specialist. The emergency department will also refer you to a specialist when appropriate. This referral assures that you have the opportunity for follow-up care with a sp ecialist. All of these measure are taken in an effort to provide you with optimal care, which includes your follow-up. Under all circumstances we always encourage you to contact your private physicia n who remains a resource for coordinating your care. When calling for follow-up care, please make the office aware that this follow-up is from your recent emergency room visit. If for any reason you are refused follow-up, please contact the [facility] Emergency Department at and asked to speak to the emergency department charge nurse. 1. You must at-home quarantine for 14 days. 2. Drink plenty of fluids including electrolyte solutions. 3. While you have diarrhea, add salt to your diet 4. BRAT diet: Bananas, Rice, Applesauce, [place], advance as tolerated 5. Tylenol as needed for body aches or fever. 6. Immodium 2mg tablet after each diarrhea stool up to 8 tabs per day Sepsis Event Note (ED) - Evaluation Sepsis Screening Result: No Definite Risk - Focused Exam Vital Signs: Vital Signs Temp Pulse Resp BP Pulse Ox 02/28/20 15:04 92 103/69 91 L 02/28/20 14:22 37.3 C 105 H 18 114/73 90 L - My Orders Last 24 Hours: My Active Orders 02/28/20 14:40 Sodium Chloride 0.9% [Saline Flush] 10 ml FLUSH ASDIRECTED PRN Sodium Chloride 0.9% [Saline Flush] 2.5 ml FLUSH ASDIRECTED PRN Saline Lock Insert [OM.PC] Stat - Assessment/Plan Last 24 Hours: My Active Orders 02/28/20 14:40 Sodium Chloride 0.9% [Saline Flush] 10 ml FLUSH ASDIRECTED PRN Sodium Chloride 0.9% [Saline Flush] 2.5 ml FLUSH ASDIRECTED PRN Saline Lock Insert [OM.PC] Stat
[2020-02-28 15:07] LABS: BLOOD UREA NITROGEN,BUN 24 mg/dL (7.0-18.0); CARBON DIOXIDE,CO2 22.9 mmol/L (21.0-32.0); CHLORIDE,CL 92 mmol/L (98-107); GLUCOSE RANDOM 152 mg/dL (74-106); POTASSIUM,K 3.7 mmol/L (3.5-5.1); SODIUM,NA 127 mmol/L (136-148)
[2020-02-28 17:00] VITALS: BP 99/71; PULSE 101
== END 2020-02-28 17:00 | disposition home or self-care (01) ==
LOC: MW.ED 14:11
DX: U07.1 COVID-19 (principal); I10 Essential (primary) hypertension; K21.9 Gastro-esophageal reflux disease without esophagitis; E11.9 Type 2 diabetes mellitus without complications; E66.9 Obesity, unspecified; E78.00 Pure hypercholesterolemia, unspecified; Z79.82 Long term (current) use of aspirin; M10.9 Gout, unspecified; Z79.84 Long term (current) use of oral hypoglycemic drugs; Z79.899 Other long term (current) drug therapy; Z98.890 Other specified postprocedural states; Z68.38 Body mass index [BMI] 38.0-38.9, adult
CPT/HCPCS: 36415; 80053; 81001; 85025; 87635; 96361; 96374; 99284; J2405; J7030; 99283; U0002

== ENCOUNTER 2020-03-01 18:53 | Inpatient (IN) | payer BC ==
[2020-03-01] MEDS ORDERED: Acetaminophen 325 MG Tab PO ONE (19:29)
[2020-03-01] MEDS ORDERED: Dexamethasone 10 MG/ML SDV IVPUSH ONE (19:36)
--- NOTE | 2020-03-01 19:37 | EDM.PDOC ---
ED HPI GENERAL MEDICAL PROBLEM - General Chief Complaint: Respiratory Problem Stated Complaint: LOW PULSE OXYGEN Time Seen by Provider: 03/01/20 18:56 Source of Information: Reports: Patient History Limitations: Reports: No Limitations - History of Present Illness INITIAL COMMENTS - FREE TEXT/NARRATIVE: 60M PMHx DM2, HTN presents for hypoxia in setting of known COVID-19 infection. Patient was feeling unwell roughly 1-week ago with dry cough and fever. Had COVID-19 swab which was positive. Has been at home and monitoring his O2 saturations. He notes feeling subjectively better, no longer febrile for last several days, minimal non-productive cough in the morning, no SOB or chest pain, but this evening while checking his O2 sats he was consistently reading 88%. Onset: Other (1-wk) Duration: Day(s): (7) Severity: Moderate Improves with: Reports: None Worsens with: Reports: None - Related Data Allergies Allergy/AdvReac Type Severity Reaction Status Date / Time No Known Allergies Allergy Verified 02/28/20 14:25 Home Meds: Home Meds Lisinopril 10 mg PO DAILY 02/20/15 [History] Simvastatin 10 mg PO DAILY 02/20/15 [History] metFORMIN HCl [Metformin HCl] 1,000 mg PO BID 02/20/15 [History] Aspirin [Halfprin] 81 mg PO DAILY 05/21/15 [History] Chlorthalidone 25 mg PO DAILY 08/24/17 [History] Empagliflozin [Jardiance] 10 mg PO DAILY 12/10/18 [History] allopurinoL [Zyloprim] 300 mg PO DAILY 12/10/18 [History] Glimepiride 2 mg PO DAILY 02/28/20 [History] Ozempic 25 mg PO WEEKLY 03/01/20 [History] Past Medical History HEENT History: Reports: Cataract Cardiovascular History: Reports: High Cholesterol, Hypertension Respiratory History: Reports: None Gastrointestinal History: Reports: Diverticulosis, GERD Other Gastrointestinal History: recent h/o diverticulitis, much better now Genitourinary History: Reports: Renal Calculus Musculoskeletal History: Reports: Gout Neurological History: Reports: None Psychiatric History: Reports: None Endocrine/Metabolic History: Reports: Diabetes, Type II, Obesity/BMI 30+ Hematologic History: Reports: None Immunologic History: Reports: None Oncologic (Cancer) History: Reports: None Dermatologic History: Reports: None - Infectious Disease History Infectious Disease History: Reports: Chicken Pox - Past Surgical History Head Surgeries/Procedures: Reports: None HEENT Surgical History: Reports: Cataract Surgery, Oral Surgery GI Surgical History: Reports: Colonoscopy Male Surgical History: Reports: Kidney Stone Extraction, Lithotripsy (ESWL), Renal Calculus Social & Family History - Family History Family Medical History: Noncontributory - Tobacco Use Smoking Status *Q: Never Smoker Second Hand Smoke Exposure: No - Caffeine Use Caffeine Use: Reports: Coffee - Recreational Drug Use Recreational Drug Use: No ED ROS GENERAL - Review of Systems Review Of Systems: Comprehensive ROS is negative, except as noted in HPI. ED EXAM, GENERAL - Physical Exam Exam: See Below Exam Limited By: No Limitations General Appearance: Alert, WD/WN, No Apparent Distress Throat/Mouth: Normal Inspection Head: Atraumatic Neck: Normal Inspection Respiratory/Chest: No Respiratory Distress, Lungs Clear, Normal Breath Sounds, No Accessory Muscle Use Cardiovascular: Normal Peripheral Pulses, Regular Rate, Rhythm, No Edema Extremities: Normal Inspection Neurological: Alert Psychiatric: Normal Affect Skin Exam: Warm, Dry EKG INTERPRETATION EKG Date: 03/01/20 Time: 19:38 Rhythm: Other (sinus tach) Rate (Beats/Min): 101 [place]: LAD-Left [place] Deviation P-Wave: Present QRS: Normal ST-T: Normal QT: Prolonged ND/PQ Interval: 147 Course - Vital Signs Last Recorded V/S: Last Vital Signs Temp 99.0 F 03/01/20 20:50 Pulse 96 03/01/20 20:50 Resp 20 03/01/20 20:50 BP 107/75 03/01/20 20:50 Pulse Ox 94 L 03/01/20 20:50 - Orders/Labs/Meds Orders: Active Orders 24 hr Category Date Time Status Admission Status [Patient Status] [ADT] Stat ADT 03/01/20 20:44 Active Cardiac Monitoring [RC] . DIRECTED Care 03/01/20 19:15 Active Pulse Oximetry [RC] ASDIRECTED Care 03/01/20 19:15 Active BLOOD GAS ARTERIAL [BG] Stat Lab 03/01/20 19:14 Ordered CULTURE BLOOD [BC] Stat Lab 03/01/20 19:20 Received CULTURE BLOOD [BC] Stat Lab 03/01/20 19:45 Received PROCALCITONIN [REF] Stat Lab 03/01/20 19:16 Received Sodium Chloride 0.9% [Normal Saline] 1,000 ml Med 03/01/20 20:30 Active IV ASDIRECTED Blood Culture x2 Reflex Set [OM.PC] Stat Oth 03/01/20 19:20 Ordered Medication Orders Sodium Chloride (Normal Saline) 1,000 mls @ 125 mls/hr IV ASDIRECTED ARLYN Last Admin: 03/01/20 20:47 Dose: 125 mls/hr Documented by: NGOZI Labs: Laboratory Tests 03/01/20 03/01/20 03/01/20 Range/Units 19:16 19:16 19:16 WBC 7.47 (4.0-11.0) K/uL RBC 4.76 (4.50-5.90) M/uL Hgb 15.2 (13.0-17.0) g/dL Hct 44.1 (38.0-50.0) % MCV 92.6 (80.0-98.0) fL MCH 31.9 (27.0-32.0) pg MCHC 34.5 (31.0-37.0) g/dL RDW Std Deviation 45.5 (28.0-62.0) fl RDW Coeff of Brianna 13 (11.0-15.0) % Plt Count 210 (150-400) K/uL MPV 9.30 (7.40-12.00) fL Neut % (Auto) 82.9 H (48.0-80.0) % Lymph % (Auto) 10.2 L (16.0-40.0) % Hale % (Auto) 6.8 (0.0-15.0) % Eos % (Auto) 0.0 (0.0-7.0) % Baso % (Auto) 0.1 (0.0-1.5) % Neut # (Auto) 6.2 H (1.4-5.7) K/uL Lymph # (Auto) 0.8 (0.6-2.4) K/uL Hale # (Auto) 0.5 (0.0-0.8) K/uL Eos # (Auto) 0.0 (0.0-0.7) K/uL Baso # (Auto) 0.0 (0.0-0.1) K/uL Nucleated RBC % 0.0 /100WBC Nucleated RBCs # 0 K/uL ESR (0-19) mm/hr INR 1.00 APTT (18.6-31.3) SEC D-Dimer, Quantitative 0.63 H (0.0-0.50) mg/L FEU Lactate 1.0 (0.20-2.00) mmol/L Sodium (136-148) mmol/L Potassium (3.5-5.1) mmol/L Chloride (98-107) mmol/L Carbon Dioxide (21.0-32.0) mmol/L BUN (7.0-18.0) mg/dL Creatinine (0.8-1.3) mg/dL Est Cr Clr Drug Dosing mL/min Estimated GFR (MDRD) ml/min Glucose (74-106) mg/dL Calcium (8.5-10.1) mg/dL Magnesium (1.8-2.4) mg/dL Total Bilirubin (0.2-1.0) mg/dL AST (15-37) IU/L ALT (14-63) IU/L Alkaline Phosphatase (46-116) U/L Troponin I (0.000-0.056) ng/mL C-Reactive Protein (0.00-0.90) mg/dL B-Natriuretic Peptide (<100) PG/ML Total Protein (6.4-8.2) g/dL Albumin (3.4-5.0) g/dL Globulin (2.6-4.0) g/dL Albumin/Globulin Ratio (0.9-1.6) 03/01/20 03/01/20 03/01/20 Range/Units 19:16 19:16 19:16 WBC (4.0-11.0) K/uL RBC (4.50-5.90) M/uL Hgb (13.0-17.0) g/dL Hct (38.0-50.0) % MCV (80.0-98.0) fL MCH (27.0-32.0) pg MCHC (31.0-37.0) g/dL RDW Std Deviation (28.0-62.0) fl RDW Coeff of Brianna (11.0-15.0) % Plt Count (150-400) K/uL MPV (7.40-12.00) fL Neut % (Auto) (48.0-80.0) % Lymph % (Auto) (16.0-40.0) % Hale % (Auto) (0.0-15.0) % Eos % (Auto) (0.0-7.0) % Baso % (Auto) (0.0-1.5) % Neut # (Auto) (1.4-5.7) K/uL Lymph # (Auto) (0.6-2.4) K/uL Hale # (Auto) (0.0-0.8) K/uL Eos # (Auto) (0.0-0.7) K/uL Baso # (Auto) (0.0-0.1) K/uL Nucleated RBC % /100WBC Nucleated RBCs # K/uL ESR (0-19) mm/hr INR APTT 29.9 (18.6-31.3) SEC D-Dimer, Quantitative (0.0-0.50) mg/L FEU Lactate (0.20-2.00) mmol/L Sodium 128 L (136-148) mmol/L Potassium 3.6 (3.5-5.1) mmol/L Chloride 92 L (98-107) mmol/L Carbon Dioxide 22.8 (21.0-32.0) mmol/L BUN 24 H (7.0-18.0) mg/dL Creatinine 1.2 (0.8-1.3) mg/dL Est Cr Clr Drug Dosing 67.59 mL/min Estimated GFR (MDRD) > 60.0 ml/min Glucose 128 H (74-106) mg/dL Calcium 8.1 L (8.5-10.1) mg/dL Magnesium 1.9 (1.8-2.4) mg/dL Total Bilirubin 0.5 (0.2-1.0) mg/dL AST 35 (15-37) IU/L ALT 28 (14-63) IU/L Alkaline Phosphatase 70 (46-116) U/L Troponin I < 0.050 (0.000-0.056) ng/mL C-Reactive Protein 12.30 H (0.00-0.90) mg/dL B-Natriuretic Peptide 4 (<100) PG/ML Total Protein 7.5 (6.4-8.2) g/dL Albumin 3.2 L (3.4-5.0) g/dL Globulin 4.3 H (2.6-4.0) g/dL Albumin/Globulin Ratio 0.7 L (0.9-1.6) 03/01/20 Range/Units 19:45 WBC (4.0-11.0) K/uL RBC (4.50-5.90) M/uL Hgb (13.0-17.0) g/dL Hct (38.0-50.0) % MCV (80.0-98.0) fL MCH (27.0-32.0) pg MCHC (31.0-37.0) g/dL RDW Std Deviation (28.0-62.0) fl RDW Coeff of Brianna (11.0-15.0) % Plt Count (150-400) K/uL MPV (7.40-12.00) fL Neut % (Auto) (48.0-80.0) % Lymph % (Auto) (16.0-40.0) % Hale % (Auto) (0.0-15.0) % Eos % (Auto) (0.0-7.0) % Baso % (Auto) (0.0-1.5) % Neut # (Auto) (1.4-5.7) K/uL Lymph # (Auto) (0.6-2.4) K/uL Hale # (Auto) (0.0-0.8) K/uL Eos # (Auto) (0.0-0.7) K/uL Baso # (Auto) (0.0-0.1) K/uL Nucleated RBC % /100WBC Nucleated RBCs # K/uL ESR 48 H (0-19) mm/hr INR APTT (18.6-31.3) SEC D-Dimer, Quantitative (0.0-0.50) mg/L FEU Lactate (0.20-2.00) mmol/L Sodium (136-148) mmol/L Potassium (3.5-5.1) mmol/L Chloride (98-107) mmol/L Carbon Dioxide (21.0-32.0) mmol/L BUN (7.0-18.0) mg/dL Creatinine (0.8-1.3) mg/dL Est Cr Clr Drug Dosing mL/min Estimated GFR (MDRD) ml/min Glucose (74-106) mg/dL Calcium (8.5-10.1) mg/dL Magnesium (1.8-2.4) mg/dL Total Bilirubin (0.2-1.0) mg/dL AST (15-37) IU/L ALT (14-63) IU/L Alkaline Phosphatase (46-116) U/L Troponin I (0.000-0.056) ng/mL C-Reactive Protein (0.00-0.90) mg/dL B-Natriuretic Peptide (<100) PG/ML Total Protein (6.4-8.2) g/dL Albumin (3.4-5.0) g/dL Globulin (2.6-4.0) g/dL Albumin/Globulin Ratio (0.9-1.6) Meds: Medications Generic Name Dose Route Start Last Admin Trade Name Freq PRN Reason Stop Dose Admin Sodium Chloride 1,000 mls @ 125 mls/hr 03/01/20 20:30 03/01/20 20:47 Normal Saline IV 125 mls/hr ASDIRECTED ARLYN Administration Discontinued Medications Generic Name Dose Route Start Last Admin Trade Name Freq PRN Reason Stop Dose Admin Acetaminophen 1,000 mg 03/01/20 19:29 03/01/20 19:38 Tylenol PO 03/01/20 19:30 1,000 mg NOW ONE Administration Dexamethasone 8 mg 03/01/20 19:36 03/01/20 19:41 Dexamethasone IVPUSH 03/01/20 19:37 8 mg ONETIME ONE Administration - Re-Assessments/Exams Free Text/Narrative Re-Assessment/Exam: 03/01/20 19:39 Known positive COVID patient presents for low O2 sat. Satting 94% on [place]. No respiratory distress and generally well appearing. Will f/u labs, will give tylenol and decadron, will likely admit for oxygen. Free Text/Narrative Re-Assessment/Exam: 03/01/20 20:52 Labs consistent with COVID-19. Patient doing well with O2. Decadron and tylenol given. normal saline at 125cc/hr. Spoke with Dr. Alicia hospitalist who agrees to admit patient under her service to telemetry bed. Departure - Departure Time of Disposition: 20:53 Disposition: DC/Tfer to [facility] Condition: Fair Clinical Impression: COVID-19 - Discharge Information Referrals: Darrian Barrera MD [Primary Care Provider] - Forms: ED Department Discharge Sepsis Event Note (ED) - Evaluation Sepsis Screening Result: Possible Sepsis Risk - Focused Exam Vital Signs: Vital Signs Temp Temp Pulse Resp BP Pulse Ox 03/01/20 20:50 99.0 F 96 20 107/75 94 L 03/01/20 20:29 98 20 107/67 93 L 03/01/20 19:38 99.9 F 03/01/20 19:19 99.9 F 102 H 22 H 106/69 93 L - My Orders Last 24 Hours: My Active Orders 03/01/20 19:14 BLOOD GAS ARTERIAL [BG] Stat 03/01/20 19:15 Cardiac Monitoring [RC] . DIRECTED Pulse Oximetry [RC] ASDIRECTED 03/01/20 19:16 PROCALCITONIN [REF] Stat 03/01/20 19:20 CULTURE BLOOD [BC] Stat Blood Culture x2 Reflex Set [OM.PC] Stat 03/01/20 19:45 CULTURE BLOOD [BC] Stat 03/01/20 20:30 Sodium Chloride 0.9% [Normal Saline] 1,000 ml IV ASDIRECTED 03/01/20 20:44 Admission Status [Patient Status] [ADT] Stat - Assessment/Plan Last 24 Hours: My Active Orders 03/01/20 19:14 BLOOD GAS ARTERIAL [BG] Stat 03/01/20 19:15 Cardiac Monitoring [RC] . DIRECTED Pulse Oximetry [RC] ASDIRECTED 03/01/20 19:16 PROCALCITONIN [REF] Stat 03/01/20 19:20 CULTURE BLOOD [BC] Stat Blood Culture x2 Reflex Set [OM.PC] Stat 03/01/20 19:45 CULTURE BLOOD [BC] Stat 03/01/20 20:30 Sodium Chloride 0.9% [Normal Saline] 1,000 ml IV ASDIRECTED 03/01/20 20:44 Admission Status [Patient Status] [ADT] Stat
[2020-03-01 19:50] LABS: BLOOD UREA NITROGEN,BUN 24 mg/dL (7.0-18.0); CARBON DIOXIDE,CO2 22.8 mmol/L (21.0-32.0); CHLORIDE,CL 92 mmol/L (98-107); GLUCOSE RANDOM 128 mg/dL (74-106); POTASSIUM,K 3.6 mmol/L (3.5-5.1); SODIUM,NA 128 mmol/L (136-148)
--- NOTE | 2020-03-01 20:30 | CR ---
Chest: Portable view of the chest was obtained. Comparison: Prior chest x-ray of 12/10/18. Increasing density within both sides of the chest which is mostly interstitial as a change from previous study. Findings presumably represent a mild interstitial pneumonia. Lungs otherwise are clear. Bony structures shows degenerative endplate spurring within the spine. No alveolar areas of consolidation are seen within the lungs. Impression: 1. Mild increasing interstitial change within both lungs presumably due to mild interstitial pneumonia. This could be bacterial or viral in etiology. 2. Degenerative spurring within the spine. Diagnostic code #3 This report was dictated in MDT
[2020-03-01] MEDS: Sodium Chloride 0.9% 1,000 ML IV SCH (20:47)
[2020-03-01] MEDS ORDERED: Enoxaparin 40 MG/0.4 ML Syringe SUBCUT SCH (22:30)
[2020-03-01] MEDS ORDERED: Albuterol/Ipratropium 4 GM Inhalation Spray INH PRN (22:32)
--- NOTE | 2020-03-01 22:40 | PCM.HP.2 ---
H&P History of Present Illness - General Date of Service: 03/01/20 Admit Problem/Dx: Admission Diagnosis/Problem Admission Diagnosis/Problem Hypoxia - History of Present Illness Initial Comments - Free Text/Narative: 60M PMHx DM2, HTN, gout presents to the ER for hypoxia in setting of known COVID-19 infection. Patient states that roughly 1-week ago he started having dry cough and fever. Had COVID-19 swab done in ER on Thursday which was positive, he was not hypoxic and was sent home. At home and monitoring his O2 saturations. He notes feeling subjectively better, no longer febrile for last several days, min imal non-productive cough in the morning, no SOB or chest pain, but this evening while checking his O2 sats he was consistently reading 88% so his insisted for him to go to ER. CXR showed b/l interstitial pneumonia. Patient was sating in 85-87 on RA, started on nasal cannula. Patient is being admitted for further management. I performed a history and physical exam of the patient and discussed management with resident. I have reviewed the residents note and agree with documented findings and plan unless otherwise specified in my note. - Related Data Allergies/Adverse Reactions: Allergies Allergy/AdvReac Type Severity Reaction Status Date / Time No Known Allergies Allergy Verified 03/01/20 22:40 Home Medications: Home Meds Lisinopril 10 mg PO DAILY 02/20/15 [History] metFORMIN HCl [Metformin HCl] 1,000 mg PO BID 02/20/15 [History] Chlorthalidone 25 mg PO DAILY 08/24/17 [History] Empagliflozin [Jardiance] 25 mg PO ACBREAKFAST 12/10/18 [History] allopurinoL [Zyloprim] 300 mg PO DAILY 12/10/18 [History] Glimepiride 2 mg PO DAILY 02/28/20 [History] Ozempic 0.25 mg SUBCUT WEEKLY 03/01/20 [History] Dulaglutide [Trulicity] 1.5 mg SQ WEEKLY 03/02/20 [History] Simvastatin 10 mg PO BEDTIME 03/02/20 [History] Past Medical History HEENT History: Reports: Cataract Cardiovascular History: Reports: High Cholesterol, Hypertension Respiratory History: Reports: None Gastrointestinal History: Reports: Diverticulosis, GERD Other Gastrointestinal History: recent h/o diverticulitis, much better now Genitourinary History: Reports: Renal Calculus Musculoskeletal History: Reports: Gout Neurological History: Reports: None Psychiatric History: Reports: None Endocrine/Metabolic History: Reports: Diabetes, Type II, Obesity/BMI 30+ Hematologic History: Reports: None Immunologic History: Reports: None Oncologic (Cancer) History: Reports: None Dermatologic History: Reports: None - Infectious Disease History Infectious Disease History: Reports: Chicken Pox - Past Surgical History Head Surgeries/Procedures: Reports: None HEENT Surgical History: Reports: Cataract Surgery, Oral Surgery GI Surgical History: Reports: Colonoscopy Male Surgical History: Reports: Kidney Stone Extraction, Lithotripsy (ESWL), Renal Calculus Social & Family History - Family History Family Medical History: Noncontributory - Tobacco Use Smoking Status *Q: Never Smoker Second Hand Smoke Exposure: No - Caffeine Use Caffeine Use: Reports: None - Recreational Drug Use Recreational Drug Use: No H&P Review of Systems - Review of Systems: Review Of Systems: See Below General: Reports: Malaise, Weakness, Fatigue. Denies: Fever, Chills HEENT: Denies: Dysphasia, Ear Pain Pulmonary: Reports: Cough. Denies: Shortness of Breath, Wheezing, Pleuritic Chest Pain, Sputum Cardiovascular: Reports: Dyspnea on Exertion. Denies: Chest Pain, Palpitations Gastrointestinal: Denies: Abdominal Pain, Anorexia, Black Stool, Diarrhea, Hematemesis, Nausea Genitourinary: Denies: Dysuria, Frequency, Burning Musculoskeletal: Denies: Neck Pain, Shoulder Pain, Arm Pain Exam - Exam Exam: See Below - Vital Signs Vital Signs: Last Vital Signs Temp 36.3 C 03/01/20 22:09 Pulse 95 03/01/20 22:09 Resp 16 03/01/20 22:09 BP 101/71 03/01/20 22:09 Pulse Ox 93 L 03/01/20 22:33 Weight: 127 kg - Exam Quality Assessment: Supplemental Oxygen General: Alert, Oriented, Cooperative Neck: Supple, Trachea Midline Lungs: Clear to Auscultation, Normal Respiratory Effort Cardiovascular: Regular Rate, Regular Rhythm, Normal S1, Normal S2 GI/Abdominal Exam: Normal Bowel Sounds, Soft, Non-Tender - Patient Data Lab Results Last 24 hrs: Laboratory Results - last 24 hr 03/01/20 03/01/20 03/01/20 Range/Units 19:16 19:16 19:16 WBC 7.47 (4.0-11.0) K/uL RBC 4.76 (4.50-5.90) M/uL Hgb 15.2 (13.0-17.0) g/dL Hct 44.1 (38.0-50.0) % MCV 92.6 (80.0-98.0) fL MCH 31.9 (27.0-32.0) pg MCHC 34.5 (31.0-37.0) g/dL RDW Std Deviation 45.5 (28.0-62.0) fl RDW Coeff of Brianna 13 (11.0-15.0) % Plt Count 210 (150-400) K/uL MPV 9.30 (7.40-12.00) fL Neut % (Auto) 82.9 H (48.0-80.0) % Lymph % (Auto) 10.2 L (16.0-40.0) % [place] % (Auto) 6.8 (0.0-15.0) % Eos % (Auto) 0.0 (0.0-7.0) % Baso % (Auto) 0.1 (0.0-1.5) % Neut # (Auto) 6.2 H (1.4-5.7) K/uL Lymph # (Auto) 0.8 (0.6-2.4) K/uL [place] # (Auto) 0.5 (0.0-0.8) K/uL Eos # (Auto) 0.0 (0.0-0.7) K/uL Baso # (Auto) 0.0 (0.0-0.1) K/uL Nucleated RBC % 0.0 /100WBC Nucleated RBCs # 0 K/uL ESR (0-19) mm/hr INR 1.00 APTT (18.6-31.3) SEC D-Dimer, Quantitative 0.63 H (0.0-0.50) mg/L FEU ABG pH (7.35-7.45) ABG pCO2 (35-45) mmHG ABG pO2 (75-100) mmHG ABG HCO3 (22-26) mEq/L ABG Total CO2 ABG Base Excess (-2.0-2.0) Lactate 1.0 (0.20-2.00) mmol/L Sodium (136-148) mmol/L Potassium (3.5-5.1) mmol/L Chloride (98-107) mmol/L Carbon Dioxide (21.0-32.0) mmol/L BUN (7.0-18.0) mg/dL Creatinine (0.8-1.3) mg/dL Est Cr Clr Drug Dosing mL/min Estimated GFR (MDRD) ml/min Glucose (74-106) mg/dL Calcium (8.5-10.1) mg/dL Magnesium (1.8-2.4) mg/dL Total Bilirubin (0.2-1.0) mg/dL AST (15-37) IU/L ALT (14-63) IU/L Alkaline Phosphatase (46-116) U/L Troponin I (0.000-0.056) ng/mL C-Reactive Protein (0.00-0.90) mg/dL B-Natriuretic Peptide (<100) PG/ML Total Protein (6.4-8.2) g/dL Albumin (3.4-5.0) g/dL Globulin (2.6-4.0) g/dL Albumin/Globulin Ratio (0.9-1.6) COVID-19 ([facility]ACHNA) (NEGATIVE) 03/01/20 03/01/20 03/01/20 Range/Units 19:16 19:16 19:16 WBC (4.0-11.0) K/uL RBC (4.50-5.90) M/uL Hgb (13.0-17.0) g/dL Hct (38.0-50.0) % MCV (80.0-98.0) fL MCH (27.0-32.0) pg MCHC (31.0-37.0) g/dL RDW Std Deviation (28.0-62.0) fl RDW Coeff of Brianna (11.0-15.0) % Plt Count (150-400) K/uL MPV (7.40-12.00) fL Neut % (Auto) (48.0-80.0) % Lymph % (Auto) (16.0-40.0) % [place] % (Auto) (0.0-15.0) % Eos % (Auto) (0.0-7.0) % Baso % (Auto) (0.0-1.5) % Neut # (Auto) (1.4-5.7) K/uL Lymph # (Auto) (0.6-2.4) K/uL [place] # (Auto) (0.0-0.8) K/uL Eos # (Auto) (0.0-0.7) K/uL Baso # (Auto) (0.0-0.1) K/uL Nucleated RBC % /100WBC Nucleated RBCs # K/uL ESR (0-19) mm/hr INR APTT 29.9 (18.6-31.3) SEC D-Dimer, Quantitative (0.0-0.50) mg/L FEU ABG pH (7.35-7.45) ABG pCO2 (35-45) mmHG ABG pO2 (75-100) mmHG ABG HCO3 (22-26) mEq/L ABG Total CO2 ABG Base Excess (-2.0-2.0) Lactate (0.20-2.00) mmol/L Sodium 128 L (136-148) mmol/L Potassium 3.6 (3.5-5.1) mmol/L Chloride 92 L (98-107) mmol/L Carbon Dioxide 22.8 (21.0-32.0) mmol/L BUN 24 H (7.0-18.0) mg/dL Creatinine 1.2 (0.8-1.3) mg/dL Est Cr Clr Drug Dosing 67.59 mL/min Estimated GFR (MDRD) > 60.0 ml/min Glucose 128 H (74-106) mg/dL Calcium 8.1 L (8.5-10.1) mg/dL Magnesium 1.9 (1.8-2.4) mg/dL Total Bilirubin 0.5 (0.2-1.0) mg/dL AST 35 (15-37) IU/L ALT 28 (14-63) IU/L Alkaline Phosphatase 70 (46-116) U/L Troponin I < 0.050 (0.000-0.056) ng/mL C-Reactive Protein 12.30 H (0.00-0.90) mg/dL B-Natriuretic Peptide 4 (<100) PG/ML Total Protein 7.5 (6.4-8.2) g/dL Albumin 3.2 L (3.4-5.0) g/dL Globulin 4.3 H (2.6-4.0) g/dL Albumin/Globulin Ratio 0.7 L (0.9-1.6) COVID-19 ([facility]ACHNA) (NEGATIVE) 03/01/20 03/01/20 03/01/20 Range/Units 19:45 21:16 21:35 WBC (4.0-11.0) K/uL RBC (4.50-5.90) M/uL Hgb (13.0-17.0) g/dL Hct (38.0-50.0) % MCV (80.0-98.0) fL MCH (27.0-32.0) pg MCHC (31.0-37.0) g/dL RDW Std Deviation (28.0-62.0) fl RDW Coeff of Brianna (11.0-15.0) % Plt Count (150-400) K/uL MPV (7.40-12.00) fL Neut % (Auto) (48.0-80.0) % Lymph % (Auto) (16.0-40.0) % [place] % (Auto) (0.0-15.0) % Eos % (Auto) (0.0-7.0) % Baso % (Auto) (0.0-1.5) % Neut # (Auto) (1.4-5.7) K/uL Lymph # (Auto) (0.6-2.4) K/uL [place] # (Auto) (0.0-0.8) K/uL Eos # (Auto) (0.0-0.7) K/uL Baso # (Auto) (0.0-0.1) K/uL Nucleated RBC % /100WBC Nucleated RBCs # K/uL ESR 48 H (0-19) mm/hr INR APTT (18.6-31.3) SEC D-Dimer, Quantitative (0.0-0.50) mg/L FEU ABG pH 7.423 (7.35-7.45) ABG pCO2 32 L (35-45) mmHG ABG pO2 73 L (75-100) mmHG ABG HCO3 21 L (22-26) mEq/L ABG Total CO2 18.5 ABG Base Excess -2.4 L (-2.0-2.0) Lactate (0.20-2.00) mmol/L Sodium (136-148) mmol/L Potassium (3.5-5.1) mmol/L Chloride (98-107) mmol/L Carbon Dioxide (21.0-32.0) mmol/L BUN (7.0-18.0) mg/dL Creatinine (0.8-1.3) mg/dL Est Cr Clr Drug Dosing mL/min Estimated GFR (MDRD) ml/min Glucose (74-106) mg/dL Calcium (8.5-10.1) mg/dL Magnesium (1.8-2.4) mg/dL Total Bilirubin (0.2-1.0) mg/dL AST (15-37) IU/L ALT (14-63) IU/L Alkaline Phosphatase (46-116) U/L Troponin I (0.000-0.056) ng/mL C-Reactive Protein (0.00-0.90) mg/dL B-Natriuretic Peptide (<100) PG/ML Total Protein (6.4-8.2) g/dL Albumin (3.4-5.0) g/dL Globulin (2.6-4.0) g/dL Albumin/Globulin Ratio (0.9-1.6) COVID-19 ([facility]ACHNA) POSITIVE H (NEGATIVE) Result Diagrams: 03/03/20 05:50 03/03/20 05:50 Sepsis Event Note - Evaluation Sepsis Screening Result: No Definite Risk - Focused Exam Vital Signs: Vital Signs Temp Temp Pulse Resp BP Pulse Ox Pulse Ox 03/01/20 22:33 93 L 03/01/20 22:09 36.3 C 95 16 101/71 93 L 03/01/20 20:50 37.2 C 96 20 107/75 94 L 03/01/20 20:29 98 20 107/67 93 L 03/01/20 19:38 37.7 C 03/01/20 19:19 37.7 C 102 H 22 H 106/69 93 L Date Exam was Performed: 03/03/20 Time Exam was Performed: 13:19 - Problem List (1) HTN (hypertension) SNOMED Code(s): 79141347 ICD Code: I10 - ESSENTIAL (PRIMARY) HYPERTENSION Status: Acute Current Visit: Yes (2) Diabetes mellitus SNOMED Code(s): 86377116 ICD Code: E11.9 - TYPE 2 DIABETES MELLITUS WITHOUT COMPLICATIONS Status: Acute Current Visit: Yes (3) COVID-19 SNOMED Code(s): 119506104 ICD Code: U07.1 - COVID-19 Status: Acute Current Visit: Yes (4) Hypoxia SNOMED Code(s): 966041517 ICD Code: R09.02 - HYPOXEMIA Status: Acute Current Visit: Yes Problem List Initiated/Reviewed/Updated: Yes Orders Last 24hrs: Active Orders 24 hr Category Date Time Status Admission Status [Patient Status] [ADT] Stat ADT 03/01/20 20:44 Active Ambulate [RC] ASDIRECTED Care 03/01/20 22:30 Active Antiembolic Devices [RC] PER UNIT ROUTINE Care 03/01/20 22:30 Active Blood Glucose Check, Bedside [RC] TIDMEALS Care 03/01/20 22:30 Active Cardiac Monitoring [RC] . DIRECTED Care 03/01/20 19:15 Active Oxygen Therapy [RC] PRN Care 03/01/20 22:30 Active Pulse Oximetry [RC] ASDIRECTED Care 03/01/20 22:33 Active RT Post Treatment Assessment [RC] Click to Edit Care 03/01/20 22:32 Active RT Pre-Treatment Assessment [RC] Click to Edit Care 03/01/20 22:32 Active VTE/DVT Education [RC] PER UNIT ROUTINE Care 03/01/20 22:30 Active Vital Signs [RC] Q4H Care 03/01/20 22:30 Active [employer] Diet [DIET] Diet 03/01/20 Dinner Active CULTURE BLOOD [BC] Stat Lab 03/01/20 19:20 Received CULTURE BLOOD [BC] Stat Lab 03/01/20 19:45 Received PROCALCITONIN [REF] Stat Lab 03/01/20 19:16 Received Albuterol/Ipratropium [Combivent Respimat] Med 03/01/20 22:32 Ordered 1 gm INH Q4H PRN Aspirin [Halfprin] Med 03/02/20 09:00 Ordered 81 mg PO DAILY Chlorthalidone Med 03/02/20 09:00 Ordered 25 mg PO DAILY Dexamethasone Sod Phosphate [dexAMETHasone sodium Med 03/02/20 09:00 Ordered phosphate] 6 mg IVPUSH DAILY Enoxaparin [Lovenox] Med 03/01/20 22:30 Ordered 40 mg SUBCUT Q12H Simvastatin [Zocor] Med 03/02/20 09:00 Ordered 10 mg PO DAILY Sodium Chloride 0.9% [Normal Saline] 1,000 ml Med 03/01/20 20:30 Active IV ASDIRECTED allopurinoL [Zyloprim] Med 03/02/20 09:00 Ordered 300 mg PO DAILY Blood Culture x2 Reflex Set [OM.PC] Stat Oth 03/01/20 19:20 Ordered Sequential Compression Device [OM.PC] Per Unit Routine Oth 03/01/20 22:30 Ordered Medication Orders Albuterol/Ipratropium (Combivent Respimat) 1 gm INH Q4H PRN PRN Reason: Dyspnea Allopurinol (Zyloprim) 300 mg PO DAILY [facility] Aspirin (Halfprin) 81 mg PO DAILY [facility] Chlorthalidone (Chlorthalidone) 25 mg PO DAILY [facility] Dexamethasone Sodium Phosphate (Dexamethasone Sodium Phosphate) 6 mg IVPUSH DAILY [facility] Enoxaparin Sodium (Lovenox) 40 mg SUBCUT Q12H [facility] Sodium Chloride (Normal Saline) 1,000 mls @ 100 mls/hr IV ASDIRECTED [facility] Last Admin: 03/01/20 20:47 Dose: 125 mls/hr Documented by: [email or web address] Simvastatin (Zocor) 10 mg PO DAILY [facility] Assessment/Plan Comment:: 60 y/o M admitted for hypoxic respiratory failre due to COVID-19 Start supplemetal oxygen via Nasal cannula Pulse oxy as needed Dexamethasone 6mg daily Lovenox 40 Q12H Hold Lisinopril for now WBC count is normal, no fever, no indication for antibiotics for now cont IVF 100cc/hr, will likely stop in AM Monitor and replete electrolytes as needed SSI for DM DuoNebs INH as needed
[2020-03-01] MEDS: Enoxaparin 40 MG/0.4 ML Syringe SUBCUT SCH (23:56)
[2020-03-02] MEDS: Sodium Chloride 0.9% 1,000 ML IV SCH ×2 (06:18→17:51)
[2020-03-02 07:19] LABS: CARBON DIOXIDE,CO2 21.7 mmol/L (21.0-32.0); POTASSIUM,K 4.4 mmol/L (3.5-5.1)
[2020-03-02] MEDS: Insulin Aspart 100 Units/ML 3 ML Pen SUBCUT SCH ×3 (08:16→17:46)
[2020-03-02] MEDS: Simvastatin 10 MG Tab PO SCH (08:17)
[2020-03-02] MEDS: Allopurinol 300 MG Tab PO SCH (08:17)
[2020-03-02] MEDS: Aspirin 81 MG Tab.EC PO SCH (08:17)
[2020-03-02] MEDS ORDERED: Chlorthalidone 25 MG Tab PO SCH (09:00)
--- NOTE | 2020-03-02 09:09 | PCM.PN ---
<Ezra Lopez - Last Filed: 03/02/20 12:13> - General Info Date of Service: 03/02/20 Subjective Update: Reports no complaints this morning. Denies any fevers, chills, chest pain, nausea or vomiting. - Patient Data Vitals - Most Recent: Last Vital Signs Temp 36.2 C 03/02/20 08:24 Pulse 95 03/02/20 08:46 Resp 18 03/02/20 08:24 BP 117/76 03/02/20 08:24 Pulse Ox 92 L 03/02/20 08:46 Weight - Most Recent: 127 kg I&O - Last 24 Hours: Intake & Output 03/01/20 03/02/20 03/02/20 22:59 06:59 14:59 Intake Total 100 Output Total 480 Balance -380 Lab Results Last 24 Hours: Laboratory Results - last 24 hr 03/01/20 03/01/20 03/01/20 Range/Units 19:16 19:16 19:16 WBC 7.47 (4.0-11.0) K/uL RBC 4.76 (4.50-5.90) M/uL Hgb 15.2 (13.0-17.0) g/dL Hct 44.1 (38.0-50.0) % MCV 92.6 (80.0-98.0) fL MCH 31.9 (27.0-32.0) pg MCHC 34.5 (31.0-37.0) g/dL RDW Std Deviation 45.5 (28.0-62.0) fl RDW Coeff of Brianna 13 (11.0-15.0) % Plt Count 210 (150-400) K/uL MPV 9.30 (7.40-12.00) fL Neut % (Auto) 82.9 H (48.0-80.0) % Lymph % (Auto) 10.2 L (16.0-40.0) % Edgar % (Auto) 6.8 (0.0-15.0) % Eos % (Auto) 0.0 (0.0-7.0) % Baso % (Auto) 0.1 (0.0-1.5) % Neut # (Auto) 6.2 H (1.4-5.7) K/uL Lymph # (Auto) 0.8 (0.6-2.4) K/uL Edgar # (Auto) 0.5 (0.0-0.8) K/uL Eos # (Auto) 0.0 (0.0-0.7) K/uL Baso # (Auto) 0.0 (0.0-0.1) K/uL Nucleated RBC % 0.0 /100WBC Nucleated RBCs # 0 K/uL ESR (0-19) mm/hr INR 1.00 APTT (18.6-31.3) SEC D-Dimer, Quantitative 0.63 H (0.0-0.50) mg/L FEU ABG pH (7.35-7.45) ABG pCO2 (35-45) mmHG ABG pO2 (75-100) mmHG ABG HCO3 (22-26) mEq/L ABG Total CO2 ABG Base Excess (-2.0-2.0) Lactate 1.0 (0.20-2.00) mmol/L Sodium (136-148) mmol/L Potassium (3.5-5.1) mmol/L Chloride (98-107) mmol/L Carbon Dioxide (21.0-32.0) mmol/L BUN (7.0-18.0) mg/dL Creatinine (0.8-1.3) mg/dL Est Cr Clr Drug Dosing mL/min Estimated GFR (MDRD) ml/min Glucose (74-106) mg/dL POC Glucose (60-110) mg/dL Calcium (8.5-10.1) mg/dL Phosphorus (2.6-4.7) mg/dL Magnesium (1.8-2.4) mg/dL Total Bilirubin (0.2-1.0) mg/dL AST (15-37) IU/L ALT (14-63) IU/L Alkaline Phosphatase (46-116) U/L Troponin I (0.000-0.056) ng/mL C-Reactive Protein (0.00-0.90) mg/dL B-Natriuretic Peptide (<100) PG/ML Total Protein (6.4-8.2) g/dL Albumin (3.4-5.0) g/dL Globulin (2.6-4.0) g/dL Albumin/Globulin Ratio (0.9-1.6) COVID-19 ([facility]) (NEGATIVE) 03/01/20 03/01/20 03/01/20 Range/Units 19:16 19:16 19:16 WBC (4.0-11.0) K/uL RBC (4.50-5.90) M/uL Hgb (13.0-17.0) g/dL Hct (38.0-50.0) % MCV (80.0-98.0) fL MCH (27.0-32.0) pg MCHC (31.0-37.0) g/dL RDW Std Deviation (28.0-62.0) fl RDW Coeff of Brianna (11.0-15.0) % Plt Count (150-400) K/uL MPV (7.40-12.00) fL Neut % (Auto) (48.0-80.0) % Lymph % (Auto) (16.0-40.0) % Edgar % (Auto) (0.0-15.0) % Eos % (Auto) (0.0-7.0) % Baso % (Auto) (0.0-1.5) % Neut # (Auto) (1.4-5.7) K/uL Lymph # (Auto) (0.6-2.4) K/uL Edgar # (Auto) (0.0-0.8) K/uL Eos # (Auto) (0.0-0.7) K/uL Baso # (Auto) (0.0-0.1) K/uL Nucleated RBC % /100WBC Nucleated RBCs # K/uL ESR (0-19) mm/hr INR APTT 29.9 (18.6-31.3) SEC D-Dimer, Quantitative (0.0-0.50) mg/L FEU ABG pH (7.35-7.45) ABG pCO2 (35-45) mmHG ABG pO2 (75-100) mmHG ABG HCO3 (22-26) mEq/L ABG Total CO2 ABG Base Excess (-2.0-2.0) Lactate (0.20-2.00) mmol/L Sodium 128 L (136-148) mmol/L Potassium 3.6 (3.5-5.1) mmol/L Chloride 92 L (98-107) mmol/L Carbon Dioxide 22.8 (21.0-32.0) mmol/L BUN 24 H (7.0-18.0) mg/dL Creatinine 1.2 (0.8-1.3) mg/dL Est Cr Clr Drug Dosing 67.59 mL/min Estimated GFR (MDRD) > 60.0 ml/min Glucose 128 H (74-106) mg/dL POC Glucose (60-110) mg/dL Calcium 8.1 L (8.5-10.1) mg/dL Phosphorus (2.6-4.7) mg/dL Magnesium 1.9 (1.8-2.4) mg/dL Total Bilirubin 0.5 (0.2-1.0) mg/dL AST 35 (15-37) IU/L ALT 28 (14-63) IU/L Alkaline Phosphatase 70 (46-116) U/L Troponin I < 0.050 (0.000-0.056) ng/mL C-Reactive Protein 12.30 H (0.00-0.90) mg/dL B-Natriuretic Peptide 4 (<100) PG/ML Total Protein 7.5 (6.4-8.2) g/dL Albumin 3.2 L (3.4-5.0) g/dL Globulin 4.3 H (2.6-4.0) g/dL Albumin/Globulin Ratio 0.7 L (0.9-1.6) COVID-19 ([facility]) (NEGATIVE) 03/01/20 03/01/20 03/01/20 Range/Units 19:45 21:16 21:35 WBC (4.0-11.0) K/uL RBC (4.50-5.90) M/uL Hgb (13.0-17.0) g/dL Hct (38.0-50.0) % MCV (80.0-98.0) fL MCH (27.0-32.0) pg MCHC (31.0-37.0) g/dL RDW Std Deviation (28.0-62.0) fl RDW Coeff of Brianna (11.0-15.0) % Plt Count (150-400) K/uL MPV (7.40-12.00) fL Neut % (Auto) (48.0-80.0) % Lymph % (Auto) (16.0-40.0) % Edgar % (Auto) (0.0-15.0) % Eos % (Auto) (0.0-7.0) % Baso % (Auto) (0.0-1.5) % Neut # (Auto) (1.4-5.7) K/uL Lymph # (Auto) (0.6-2.4) K/uL Edgar # (Auto) (0.0-0.8) K/uL Eos # (Auto) (0.0-0.7) K/uL Baso # (Auto) (0.0-0.1) K/uL Nucleated RBC % /100WBC Nucleated RBCs # K/uL ESR 48 H (0-19) mm/hr INR APTT (18.6-31.3) SEC D-Dimer, Quantitative (0.0-0.50) mg/L FEU ABG pH 7.423 (7.35-7.45) ABG pCO2 32 L (35-45) mmHG ABG pO2 73 L (75-100) mmHG ABG HCO3 21 L (22-26) mEq/L ABG Total CO2 18.5 ABG Base Excess -2.4 L (-2.0-2.0) Lactate (0.20-2.00) mmol/L Sodium (136-148) mmol/L Potassium (3.5-5.1) mmol/L Chloride (98-107) mmol/L Carbon Dioxide (21.0-32.0) mmol/L BUN (7.0-18.0) mg/dL Creatinine (0.8-1.3) mg/dL Est Cr Clr Drug Dosing mL/min Estimated GFR (MDRD) ml/min Glucose (74-106) mg/dL POC Glucose (60-110) mg/dL Calcium (8.5-10.1) mg/dL Phosphorus (2.6-4.7) mg/dL Magnesium (1.8-2.4) mg/dL Total Bilirubin (0.2-1.0) mg/dL AST (15-37) IU/L ALT (14-63) IU/L Alkaline Phosphatase (46-116) U/L Troponin I (0.000-0.056) ng/mL C-Reactive Protein (0.00-0.90) mg/dL B-Natriuretic Peptide (<100) PG/ML Total Protein (6.4-8.2) g/dL Albumin (3.4-5.0) g/dL Globulin (2.6-4.0) g/dL Albumin/Globulin Ratio (0.9-1.6) COVID-19 ([facility]) POSITIVE H (NEGATIVE) 03/02/20 03/02/20 03/02/20 Range/Units 05:40 05:40 06:17 WBC 5.15 (4.0-11.0) K/uL RBC 4.83 (4.50-5.90) M/uL Hgb 15.6 (13.0-17.0) g/dL Hct 45.4 (38.0-50.0) % MCV 94.0 (80.0-98.0) fL MCH 32.3 H (27.0-32.0) pg MCHC 34.4 (31.0-37.0) g/dL RDW Std Deviation 46.4 (28.0-62.0) fl RDW Coeff of Brianna 13 (11.0-15.0) % Plt Count 232 (150-400) K/uL MPV 9.70 (7.40-12.00) fL Neut % (Auto) 85.8 H (48.0-80.0) % Lymph % (Auto) 11.3 L (16.0-40.0) % Edgar % (Auto) 2.7 (0.0-15.0) % Eos % (Auto) 0.0 (0.0-7.0) % Baso % (Auto) 0.2 (0.0-1.5) % Neut # (Auto) 4.4 (1.4-5.7) K/uL Lymph # (Auto) 0.6 (0.6-2.4) K/uL Edgar # (Auto) 0.1 (0.0-0.8) K/uL Eos # (Auto) 0.0 (0.0-0.7) K/uL Baso # (Auto) 0.0 (0.0-0.1) K/uL Nucleated RBC % 0.0 /100WBC Nucleated RBCs # 0 K/uL ESR (0-19) mm/hr INR APTT (18.6-31.3) SEC D-Dimer, Quantitative (0.0-0.50) mg/L FEU ABG pH (7.35-7.45) ABG pCO2 (35-45) mmHG ABG pO2 (75-100) mmHG ABG HCO3 (22-26) mEq/L ABG Total CO2 ABG Base Excess (-2.0-2.0) Lactate (0.20-2.00) mmol/L Sodium 132 L (136-148) mmol/L Potassium 4.4 (3.5-5.1) mmol/L Chloride 94 L (98-107) mmol/L Carbon Dioxide 21.7 (21.0-32.0) mmol/L BUN 28 H (7.0-18.0) mg/dL Creatinine 1.4 H (0.8-1.3) mg/dL Est Cr Clr Drug Dosing 58.08 mL/min Estimated GFR (MDRD) 51.7 ml/min Glucose 192 H (74-106) mg/dL POC Glucose 184 H (60-110) mg/dL Calcium 8.6 (8.5-10.1) mg/dL Phosphorus 4.2 (2.6-4.7) mg/dL Magnesium 2.2 (1.8-2.4) mg/dL Total Bilirubin (0.2-1.0) mg/dL AST (15-37) IU/L ALT (14-63) IU/L Alkaline Phosphatase (46-116) U/L Troponin I (0.000-0.056) ng/mL C-Reactive Protein (0.00-0.90) mg/dL B-Natriuretic Peptide (<100) PG/ML Total Protein (6.4-8.2) g/dL Albumin (3.4-5.0) g/dL Globulin (2.6-4.0) g/dL Albumin/Globulin Ratio (0.9-1.6) COVID-19 ([facility]) (NEGATIVE) Med Orders - Current: Current Medications Albuterol/Ipratropium (Combivent Respimat) 1 gm INH Q4H PRN PRN Reason: Dyspnea Allopurinol (Zyloprim) 300 mg PO DAILY [facility] Last Admin: 03/02/20 08:17 Dose: 300 mg Documented by: Aspirin (Halfprin) 81 mg PO DAILY [facility] Last Admin: 03/02/20 08:17 Dose: 81 mg Documented by: Dexamethasone Sodium Phosphate (Dexamethasone Sodium Phosphate) 6 mg IVPUSH DAILY [facility] Last Admin: 03/02/20 08:18 Dose: 6 mg Documented by: Enoxaparin Sodium (Lovenox) 40 mg SUBCUT Q12H [facility] Last Admin: 03/01/20 23:56 Dose: Not Given Documented by: Sodium Chloride (Normal Saline) 1,000 mls @ 100 mls/hr IV ASDIRECTED [facility] Last Admin: 03/02/20 06:18 Dose: 100 mls/hr Documented by: Insulin Aspart (Novolog) 0 unit SUBCUT TIDAC [facility]; Protocol Last Admin: 03/02/20 08:16 Dose: 1 unit Documented by: Simvastatin (Zocor) 10 mg PO DAILY [facility] Last Admin: 03/02/20 08:17 Dose: 10 mg Documented by: Discontinued Medications Acetaminophen (Tylenol) 1,000 mg PO NOW ONE Stop: 03/01/20 19:30 Last Admin: 03/01/20 19:38 Dose: 1,000 mg Documented by: Chlorthalidone (Chlorthalidone) 25 mg PO DAILY [facility] Dexamethasone (Dexamethasone) 8 mg IVPUSH ONETIME ONE Stop: 03/01/20 19:37 Last Admin: 03/01/20 19:41 Dose: 8 mg Documented by: Enoxaparin Sodium (Lovenox) 40 mg SUBCUT Q24H [facility] Last Admin: 03/01/20 23:12 Dose: 40 mg Documented by: - Exam General: Alert, Oriented, Cooperative, No Acute Distress Lungs: Clear to Auscultation, Normal Respiratory Effort Cardiovascular: Regular Rate, Regular Rhythm GI/Abdominal Exam: Normal Bowel Sounds, Soft, Non-Tender, No Distention Extremities: Normal Inspection, No Pedal Edema Skin: Warm, Dry, Intact Sepsis Event Note - Evaluation Sepsis Screening Result: No Definite Risk - Focused Exam Vital Signs: Vital Signs Temp Temp Pulse Resp BP BP Pulse Ox 03/02/20 08:46 95 92 L 03/02/20 08:24 36.2 C 86 18 117/76 94 L 03/02/20 04:23 36.1 C 82 16 115/69 94 L 03/01/20 23:06 36.4 C 91 16 99/67 92 L 03/01/20 22:33 03/01/20 22:09 36.3 C 95 16 101/71 93 L Pulse Ox 03/02/20 08:46 03/02/20 08:24 03/02/20 04:23 03/01/20 23:06 03/01/20 22:33 93 L 03/01/20 22:09 Date Exam was Performed: 03/02/20 Time Exam was Performed: 12:13 - Problem List Review Problem List Initiated/Reviewed/Updated: Yes - My Orders Last 24 Hours: My Active Orders 03/02/20 07:30 Insulin Aspart [NovoLOG] See Protocol SUBCUT TIDAC 03/02/20 08:45 Code Status [Resuscitation Status] Routine - Plan Plan:: Assessment and Plan: 1. Acute hypoxic respiratory failure secondary to viral pneumonia: - COVID19 positive. Continue supplemental oxygen, IV dexamethasone 6m qd and DuoNebs INH prn. Will start IV azithromycin qd. Blood cultures pending. - CXR showed bilateral interstitial opacities. 2. NICK: - Continue IV LR's 75 cc/hr. 3. DM type II: - ADA diet and sliding scale insulin. Glucose checks TIDAC. 4. DVT prophylaxis: Lovenox 40 mg subcut BID. 5. Past medical history of HTN, hyperlipidemia and gout: - Continue home medications. Will hold lisinopril for now secondary to #2. <Enrique Alicia - Last Filed: 03/02/20 22:48> - General Info Subjective Update: I have seen and evaluated the patient and agree with the residents note unless specified in my note - Patient Data Vitals - Most Recent: Last Vital Signs Temp 36.6 C 03/02/20 20:08 Pulse 89 03/02/20 20:08 Resp 19 03/02/20 20:08 BP 113/77 03/02/20 20:08 Pulse Ox 91 L 03/02/20 20:08 I&O - Last 24 Hours: Intake & Output 03/02/20 03/02/20 03/02/20 06:59 14:59 22:59 Intake Total 476 025 1753 Output Total 480 840 Balance -013 808 5512 Lab Results Last 24 Hours: Laboratory Results - last 24 hr 03/02/20 03/02/20 03/02/20 Range/Units 05:40 05:40 06:17 WBC 5.15 (4.0-11.0) K/uL RBC 4.83 (4.50-5.90) M/uL Hgb 15.6 (13.0-17.0) g/dL Hct 45.4 (38.0-50.0) % MCV 94.0 (80.0-98.0) fL MCH 32.3 H (27.0-32.0) pg MCHC 34.4 (31.0-37.0) g/dL RDW Std Deviation 46.4 (28.0-62.0) fl RDW Coeff of Brianna 13 (11.0-15.0) % Plt Count 232 (150-400) K/uL MPV 9.70 (7.40-12.00) fL Neut % (Auto) 85.8 H (48.0-80.0) % Lymph % (Auto) 11.3 L (16.0-40.0) % Edgar % (Auto) 2.7 (0.0-15.0) % Eos % (Auto) 0.0 (0.0-7.0) % Baso % (Auto) 0.2 (0.0-1.5) % Neut # (Auto) 4.4 (1.4-5.7) K/uL Lymph # (Auto) 0.6 (0.6-2.4) K/uL Edgar # (Auto) 0.1 (0.0-0.8) K/uL Eos # (Auto) 0.0 (0.0-0.7) K/uL Baso # (Auto) 0.0 (0.0-0.1) K/uL Nucleated RBC % 0.0 /100WBC Nucleated RBCs # 0 K/uL Sodium 132 L (136-148) mmol/L Potassium 4.4 (3.5-5.1) mmol/L Chloride 94 L (98-107) mmol/L Carbon Dioxide 21.7 (21.0-32.0) mmol/L BUN 28 H (7.0-18.0) mg/dL Creatinine 1.4 H (0.8-1.3) mg/dL Est Cr Clr Drug Dosing 58.08 mL/min Estimated GFR (MDRD) 51.7 ml/min Glucose 192 H (74-106) mg/dL POC Glucose 184 H (60-110) mg/dL Calcium 8.6 (8.5-10.1) mg/dL Phosphorus 4.2 (2.6-4.7) mg/dL Magnesium 2.2 (1.8-2.4) mg/dL 03/02/20 03/02/20 Range/Units 13:06 17:45 WBC (4.0-11.0) K/uL RBC (4.50-5.90) M/uL Hgb (13.0-17.0) g/dL Hct (38.0-50.0) % MCV (80.0-98.0) fL MCH (27.0-32.0) pg MCHC (31.0-37.0) g/dL RDW Std Deviation (28.0-62.0) fl RDW Coeff of Brianna (11.0-15.0) % Plt Count (150-400) K/uL MPV (7.40-12.00) fL Neut % (Auto) (48.0-80.0) % Lymph % (Auto) (16.0-40.0) % Edgar % (Auto) (0.0-15.0) % Eos % (Auto) (0.0-7.0) % Baso % (Auto) (0.0-1.5) % Neut # (Auto) (1.4-5.7) K/uL Lymph # (Auto) (0.6-2.4) K/uL Edgar # (Auto) (0.0-0.8) K/uL Eos # (Auto) (0.0-0.7) K/uL Baso # (Auto) (0.0-0.1) K/uL Nucleated RBC % /100WBC Nucleated RBCs # K/uL Sodium (136-148) mmol/L Potassium (3.5-5.1) mmol/L Chloride (98-107) mmol/L Carbon Dioxide (21.0-32.0) mmol/L BUN (7.0-18.0) mg/dL Creatinine (0.8-1.3) mg/dL Est Cr Clr Drug Dosing mL/min Estimated GFR (MDRD) ml/min Glucose (74-106) mg/dL POC Glucose 183 H 193 H (60-110) mg/dL Calcium (8.5-10.1) mg/dL Phosphorus (2.6-4.7) mg/dL Magnesium (1.8-2.4) mg/dL [facility] Results Last 24 Hours: Microbiology 03/01/20 19:45 Aerobic Blood Culture - Preliminary Blood - Venous - Lab Draw NO GROWTH AFTER 1 DAY Anaerobic Blood Culture - Preliminary NO GROWTH AFTER 1 DAY 03/01/20 19:20 Aerobic Blood Culture - Preliminary Blood - Venous NO GROWTH AFTER 1 DAY Anaerobic Blood Culture - Preliminary NO GROWTH AFTER 1 DAY Med Orders - Current: Current Medications Albuterol/Ipratropium (Combivent Respimat) 1 gm INH Q4H PRN PRN Reason: Dyspnea Allopurinol (Zyloprim) 300 mg PO DAILY [facility] Last Admin: 03/02/20 08:17 Dose: 300 mg Documented by: Aspirin (Halfprin) 81 mg PO DAILY [facility] Last Admin: 03/02/20 08:17 Dose: 81 mg Documented by: Dexamethasone Sodium Phosphate (Dexamethasone Sodium Phosphate) 6 mg IVPUSH DAILY [facility] Last Admin: 03/02/20 08:18 Dose: 6 mg Documented by: Enoxaparin Sodium (Lovenox) 40 mg SUBCUT Q12H [facility] Last Admin: 03/02/20 10:56 Dose: 40 mg Documented by: Sodium Chloride (Normal Saline) 1,000 mls @ 75 mls/hr IV ASDIRECTED [facility] Last Admin: 03/02/20 17:51 Dose: 75 mls/hr Documented by: Azithromycin 500 mg/ Sodium (Chloride) 250 mls @ 250 mls/hr IV DAILY [facility] Last Admin: 03/02/20 13:03 Dose: 250 mls/hr Documented by: Insulin Aspart (Novolog) 0 unit SUBCUT TIDAC [facility]; Protocol Last Admin: 03/02/20 17:46 Dose: 1 unit Documented by: Simvastatin (Zocor) 10 mg PO DAILY [facility] Last Admin: 03/02/20 08:17 Dose: 10 mg Documented by: Discontinued Medications Acetaminophen (Tylenol) 1,000 mg PO NOW ONE Stop: 03/01/20 19:30 Last Admin: 03/01/20 19:38 Dose: 1,000 mg Documented by: Chlorthalidone (Chlorthalidone) 25 mg PO DAILY [facility] Dexamethasone (Dexamethasone) 8 mg IVPUSH ONETIME ONE Stop: 03/01/20 19:37 Last Admin: 03/01/20 19:41 Dose: 8 mg Documented by: Enoxaparin Sodium (Lovenox) 40 mg SUBCUT Q24H [facility] Last Admin: 03/01/20 23:12 Dose: 40 mg Documented by: Sepsis Event Note - Focused Exam Vital Signs: Vital Signs Temp Temp Pulse Resp BP Pulse Ox 03/02/20 20:08 36.6 C 89 19 113/77 91 L 03/02/20 16:47 36.6 C 90 18 124/73 93 L 03/02/20 13:08 98 19 92 L 03/02/20 11:09 94 94 L 03/02/20 11:05 91 L 03/02/20 11:01 36.8 C 95 18 117/83 90 L Date Exam was Performed: 03/02/20 Time Exam was Performed: 22:48 - Problem List & Annotations (1) HTN (hypertension) SNOMED Code(s): 35973828 Code(s): I10 - ESSENTIAL (PRIMARY) HYPERTENSION Status: Acute Current Visit: Yes (2) Diabetes mellitus SNOMED Code(s): 48462548 Code(s): E11.9 - TYPE 2 DIABETES MELLITUS WITHOUT COMPLICATIONS Status: Acute Current Visit: Yes (3) COVID-19 SNOMED Code(s): 218888060 Code(s): U07.1 - COVID-19 Status: Acute Current Visit: Yes (4) Hypoxia SNOMED Code(s): 979018005 Code(s): R09.02 - HYPOXEMIA Status: Acute Current Visit: Yes - My Orders Last 24 Hours: My Active Orders 03/01/20 22:00 Telemetry Monitoring [Cardiac Monitoring] [RC] Q8H 03/01/20 22:30 Ambulate [RC] ASDIRECTED Antiembolic Devices [RC] PER UNIT ROUTINE Blood Glucose Check, Bedside [RC] TIDMEALS Oxygen Therapy [RC] PRN VTE/DVT Education [RC] PER UNIT ROUTINE Vital Signs [RC] Q4H Sequential Compression Device [OM.PC] Per Unit Routine 03/01/20 22:32 RT Post Treatment Assessment [RC] Click to Edit RT Pre-Treatment Assessment [RC] Click to Edit Albuterol/Ipratropium [Combivent Respimat] 1 gm INH Q4H PRN 03/01/20 23:15 Enoxaparin [Lovenox] 40 mg SUBCUT Q12H 03/02/20 09:00 Aspirin [Halfprin] 81 mg PO DAILY Dexamethasone Sod Phosphate [dexAMETHasone sodium phosphate] 6 mg IVPUSH DAILY Simvastatin [Zocor] 10 mg PO DAILY allopurinoL [Zyloprim] 300 mg PO DAILY
[2020-03-02] MEDS: Enoxaparin 40 MG/0.4 ML Syringe SUBCUT SCH ×2 (10:56→23:37)
[2020-03-02] MEDS: Azithromycin 500 MG in Sodium Chloride 0.9% 250 ML IV SCH (13:03)
[2020-03-03 06:35] LABS: BLOOD UREA NITROGEN,BUN 25 mg/dL (7.0-18.0); CARBON DIOXIDE,CO2 25.4 mmol/L (21.0-32.0); CHLORIDE,CL 99 mmol/L (98-107); GLUCOSE RANDOM 196 mg/dL (74-106); POTASSIUM,K 4.1 mmol/L (3.5-5.1); SODIUM,NA 133 mmol/L (136-148)
[2020-03-03] MEDS: Sodium Chloride 0.9% 1,000 ML IV SCH (06:37)
[2020-03-03] MEDS: Insulin Aspart 100 Units/ML 3 ML Pen SUBCUT SCH ×3 (08:36→18:08)
[2020-03-03] MEDS: Allopurinol 300 MG Tab PO SCH (08:37)
[2020-03-03] MEDS: Aspirin 81 MG Tab.EC PO SCH (08:37)
[2020-03-03] MEDS: Simvastatin 10 MG Tab PO SCH (08:37)
[2020-03-03] MEDS: Azithromycin 500 MG in Sodium Chloride 0.9% 250 ML IV SCH (08:50)
[2020-03-03] MEDS: Enoxaparin 40 MG/0.4 ML Syringe SUBCUT SCH ×2 (11:59→23:06)
--- NOTE | 2020-03-03 12:33 | PCM.PN ---
<Ezra Lopez M - Last Filed: 03/03/20 12:31> - General Info Date of Service: 03/03/20 Subjective Update: No complaints at bedside this morning. Reports no fevers, chills, chest pain, nausea, vomiting, abdominal pain or diarrhea. - Patient Data Vitals - Most Recent: Last Vital Signs Temp 36.1 C 03/03/20 12:05 Pulse 86 03/03/20 12:05 Resp 18 03/03/20 12:05 BP 127/85 03/03/20 12:05 Pulse Ox 93 L 03/03/20 12:05 Weight - Most Recent: 127 kg I&O - Last 24 Hours: Intake & Output 03/02/20 03/03/20 03/03/20 22:59 06:59 14:59 Intake Total 2870 1696 250 Output Total 840 1700 Balance 2030 -4 250 Lab Results Last 24 Hours: Laboratory Results - last 24 hr 03/01/20 03/02/20 03/02/20 Range/Units 19:16 13:06 17:45 WBC (4.0-11.0) K/uL RBC (4.50-5.90) M/uL Hgb (13.0-17.0) g/dL Hct (38.0-50.0) % MCV (80.0-98.0) fL MCH (27.0-32.0) pg MCHC (31.0-37.0) g/dL RDW Std Deviation (28.0-62.0) fl RDW Coeff of Brianna (11.0-15.0) % Plt Count (150-400) K/uL MPV (7.40-12.00) fL Neut % (Auto) (48.0-80.0) % Lymph % (Auto) (16.0-40.0) % [place] % (Auto) (0.0-15.0) % Eos % (Auto) (0.0-7.0) % Baso % (Auto) (0.0-1.5) % Neut # (Auto) (1.4-5.7) K/uL Lymph # (Auto) (0.6-2.4) K/uL [place] # (Auto) (0.0-0.8) K/uL Eos # (Auto) (0.0-0.7) K/uL Baso # (Auto) (0.0-0.1) K/uL Nucleated RBC % /100WBC Nucleated RBCs # K/uL Sodium (136-148) mmol/L Potassium (3.5-5.1) mmol/L Chloride (98-107) mmol/L Carbon Dioxide (21.0-32.0) mmol/L BUN (7.0-18.0) mg/dL Creatinine (0.8-1.3) mg/dL Est Cr Clr Drug Dosing mL/min Estimated GFR (MDRD) ml/min Glucose (74-106) mg/dL POC Glucose 183 H 193 H (60-110) mg/dL Calcium (8.5-10.1) mg/dL Total Bilirubin (0.2-1.0) mg/dL AST (15-37) IU/L ALT (14-63) IU/L Alkaline Phosphatase (46-116) U/L Total Protein (6.4-8.2) g/dL Albumin (3.4-5.0) g/dL Globulin (2.6-4.0) g/dL Albumin/Globulin Ratio (0.9-1.6) Procalcitonin <0.05 (<0.10) ng/mL 03/03/20 03/03/20 03/03/20 Range/Units 05:50 05:50 06:42 WBC 8.61 (4.0-11.0) K/uL RBC 4.38 L (4.50-5.90) M/uL Hgb 13.8 (13.0-17.0) g/dL Hct 41.0 (38.0-50.0) % MCV 93.6 (80.0-98.0) fL MCH 31.5 (27.0-32.0) pg MCHC 33.7 (31.0-37.0) g/dL RDW Std Deviation 44.7 (28.0-62.0) fl RDW Coeff of [place]in[place] 13 (11.0-15.0) % Plt Count 287 (150-400) K/uL MPV 9.70 (7.40-12.00) fL Neut % (Auto) 80.2 H (48.0-80.0) % Lymph % (Auto) 10.9 L (16.0-40.0) % [place] % (Auto) 8.8 (0.0-15.0) % Eos % (Auto) 0.0 (0.0-7.0) % Baso % (Auto) 0.1 (0.0-1.5) % Neut # (Auto) 6.9 H (1.4-5.7) K/uL Lymph # (Auto) 0.9 (0.6-2.4) K/uL [place] # (Auto) 0.8 (0.0-0.8) K/uL Eos # (Auto) 0.0 (0.0-0.7) K/uL Baso # (Auto) 0.0 (0.0-0.1) K/uL Nucleated RBC % 0.0 /100WBC Nucleated RBCs # 0 K/uL Sodium 133 L (136-148) mmol/L Potassium 4.1 (3.5-5.1) mmol/L Chloride 99 (98-107) mmol/L Carbon Dioxide 25.4 (21.0-32.0) mmol/L BUN 25 H (7.0-18.0) mg/dL Creatinine 1.0 (0.8-1.3) mg/dL Est Cr Clr Drug Dosing 81.31 mL/min Estimated GFR (MDRD) > 60.0 ml/min Glucose 196 H (74-106) mg/dL POC Glucose 191 H (60-110) mg/dL Calcium 8.1 L (8.5-10.1) mg/dL Total Bilirubin 0.3 (0.2-1.0) mg/dL AST 38 H (15-37) IU/L ALT 41 (14-63) IU/L Alkaline Phosphatase 58 (46-116) U/L Total Protein 6.6 (6.4-8.2) g/dL Albumin 2.8 L (3.4-5.0) g/dL Globulin 3.8 (2.6-4.0) g/dL Albumin/Globulin Ratio 0.7 L (0.9-1.6) Procalcitonin (<0.10) ng/mL Reymundo Results Last 24 Hours: Microbiology 03/01/20 19:45 Aerobic Blood Culture - Preliminary Blood - Venous - Lab Draw NO GROWTH AFTER 1 DAY Anaerobic Blood Culture - Preliminary NO GROWTH AFTER 1 DAY 03/01/20 19:20 Aerobic Blood Culture - Preliminary Blood - Venous NO GROWTH AFTER 1 DAY Anaerobic Blood Culture - Preliminary NO GROWTH AFTER 1 DAY Med Orders - Current: Current Medications Albuterol/Ipratropium (Combivent Respimat) 1 gm INH Q4H PRN PRN Reason: Dyspnea Allopurinol (Zyloprim) 300 mg PO DAILY [facility] Last Admin: 03/03/20 08:37 Dose: 300 mg Documented by: Aspirin (Halfprin) 81 mg PO DAILY [facility] Last Admin: 03/03/20 08:37 Dose: 81 mg Documented by: Dexamethasone Sodium Phosphate (Dexamethasone Sodium Phosphate) 6 mg IVPUSH DAILY [facility] Last Admin: 03/03/20 08:43 Dose: 6 mg Documented by: Enoxaparin Sodium (Lovenox) 40 mg SUBCUT Q12H [facility] Last Admin: 03/03/20 11:59 Dose: 40 mg Documented by: Azithromycin 500 mg/ Sodium (Chloride) 250 mls @ 250 mls/hr IV DAILY [facility] Last Admin: 03/03/20 08:50 Dose: 250 mls/hr Documented by: Insulin Aspart (Novolog) 0 unit SUBCUT TIDAC [facility]; Protocol Last Admin: 03/03/20 08:36 Dose: 1 unit Documented by: Simvastatin (Zocor) 10 mg PO DAILY [facility] Last Admin: 03/03/20 08:37 Dose: 10 mg Documented by: Discontinued Medications Acetaminophen (Tylenol) 1,000 mg PO NOW ONE Stop: 03/01/20 19:30 Last Admin: 03/01/20 19:38 Dose: 1,000 mg Documented by: Chlorthalidone (Chlorthalidone) 25 mg PO DAILY [facility] Dexamethasone (Dexamethasone) 8 mg IVPUSH ONETIME ONE Stop: 03/01/20 19:37 Last Admin: 03/01/20 19:41 Dose: 8 mg Documented by: Enoxaparin Sodium (Lovenox) 40 mg SUBCUT Q24H [facility] Last Admin: 03/01/20 23:12 Dose: 40 mg Documented by: Sodium Chloride (Normal Saline) 1,000 mls @ 75 mls/hr IV ASDIRECTED [facility] Last Admin: 03/03/20 06:37 Dose: 75 mls/hr Documented by: - Exam General: Alert, Oriented, Cooperative, No Acute Distress Lungs: Clear to Auscultation, Normal Respiratory Effort Cardiovascular: Regular Rate, Regular Rhythm GI/Abdominal Exam: Normal Bowel Sounds, Soft, Non-Tender, No Distention Extremities: Normal Inspection, No Pedal Edema Sepsis Event Note - Evaluation Sepsis Screening Result: No Definite Risk - Focused Exam Vital Signs: Vital Signs Temp Pulse Resp BP Pulse Ox 03/03/20 12:05 36.1 C 86 18 127/85 93 L 03/03/20 08:40 36.4 C 93 20 119/83 92 L 03/03/20 06:59 19 93 L 03/03/20 03:37 36.3 C 84 18 124/73 93 L Date Exam was Performed: 03/03/20 Time Exam was Performed: 12:31 - Problem List Review Problem List Initiated/Reviewed/Updated: Yes - My Orders Last 24 Hours: My Active Orders 03/02/20 11:45 Azithromycin [Zithromax] 500 mg Sodium Chloride 0.9% [Normal Saline (AdvBag)] 250 ml IV DAILY 03/03/20 07:53 Communication Order [RC] ROUTINE 03/03/20 11:47 TROPONIN I [CHEM] Stat - Plan Plan:: Assessment and Plan: 1. Acute hypoxic respiratory failure secondary to viral pneumonia: - COVID19 positive. Continue supplemental oxygen, IV dexamethasone 6m qd, IV azithromycin and DuoNebs INH prn. Patient currently on 2 L NC. Blood cultures pending. - CXR showed bilateral interstitial opacities. 2. NICK, resolved: 3. DM type II: - ADA diet and sliding scale insulin. Glucose checks TIDAC. 4. DVT prophylaxis: Lovenox 40 mg subcut BID. 5. Past medical history of HTN, hyperlipidemia and gout: - Continue home medications. Will hold lisinopril for now secondary to #2. <Enrique Alicia - Last Filed: 03/05/20 19:12> - General Info Subjective Update: I have seen and evaluated the patient and agree with the residents note unless specified in my note - Patient Data Vitals - Most Recent: Last Vital Signs Temp 36.4 C 03/05/20 16:00 Pulse 79 03/05/20 16:00 Resp 18 03/05/20 16:00 BP 120/88 03/05/20 16:00 Pulse Ox 93 L 03/05/20 16:00 I&O - Last 24 Hours: Intake & Output 03/05/20 03/05/20 03/05/20 06:59 14:59 22:59 Intake Total 450 850 Output Total 1400 400 Balance -950 450 Lab Results Last 24 Hours: Laboratory Results - last 24 hr 03/05/20 03/05/20 03/05/20 Range/Units 06:30 06:30 06:30 WBC 7.18 (4.0-11.0) K/uL RBC 4.19 L (4.50-5.90) M/uL Hgb 13.4 (13.0-17.0) g/dL Hct 39.1 (38.0-50.0) % MCV 93.3 (80.0-98.0) fL MCH 32.0 (27.0-32.0) pg MCHC 34.3 (31.0-37.0) g/dL RDW Std Deviation 42.0 (28.0-62.0) fl RDW Coeff of Brianna 13 (11.0-15.0) % Plt Count 281 (150-400) K/uL MPV 9.10 (7.40-12.00) fL Add Manual Diff YES Neutrophils % (Manual) 79 (48.0-80.0) % Band Neutrophils % 2 % Lymphocytes % (Manual) 13 L (16.0-40.0) % Monocytes % (Manual) 5 (0.0-15.0) % Absolute Seg Neuts 5.7 (1.4-5.7) Band Neutrophils # 0.1 Lymphocytes # (Manual) 0.9 (0.6-2.4) Monocytes # (Manual) 0.4 (0.0-0.8) Sodium 132 L (136-148) mmol/L Potassium 3.7 (3.5-5.1) mmol/L Chloride 99 (98-107) mmol/L Carbon Dioxide 29.4 (21.0-32.0) mmol/L BUN 18 (7.0-18.0) mg/dL Creatinine 1.0 (0.8-1.3) mg/dL Est Cr Clr Drug Dosing 81.31 mL/min Estimated GFR (MDRD) > 60.0 ml/min Glucose 220 H (74-106) mg/dL POC Glucose (60-110) mg/dL Calcium 7.9 L (8.5-10.1) mg/dL Phosphorus 2.2 L (2.6-4.7) mg/dL Magnesium 1.8 (1.8-2.4) mg/dL Albumin 2.8 L (3.4-5.0) g/dL 03/05/20 03/05/20 Range/Units 06:31 12:24 WBC (4.0-11.0) K/uL RBC (4.50-5.90) M/uL Hgb (13.0-17.0) g/dL Hct (38.0-50.0) % MCV (80.0-98.0) fL MCH (27.0-32.0) pg MCHC (31.0-37.0) g/dL RDW Std Deviation (28.0-62.0) fl RDW Coeff of Brianna (11.0-15.0) % Plt Count (150-400) K/uL MPV (7.40-12.00) fL Add Manual Diff Neutrophils % (Manual) (48.0-80.0) % Band Neutrophils % % Lymphocytes % (Manual) (16.0-40.0) % Monocytes % (Manual) (0.0-15.0) % Absolute Seg Neuts (1.4-5.7) Band Neutrophils # Lymphocytes # (Manual) (0.6-2.4) Monocytes # (Manual) (0.0-0.8) Sodium (136-148) mmol/L Potassium (3.5-5.1) mmol/L Chloride (98-107) mmol/L Carbon Dioxide (21.0-32.0) mmol/L BUN (7.0-18.0) mg/dL Creatinine (0.8-1.3) mg/dL Est Cr Clr Drug Dosing mL/min Estimated GFR (MDRD) ml/min Glucose (74-106) mg/dL POC Glucose 196 H 283 H (60-110) mg/dL Calcium (8.5-10.1) mg/dL Phosphorus (2.6-4.7) mg/dL Magnesium (1.8-2.4) mg/dL Albumin (3.4-5.0) g/dL Reymundo Results Last 24 Hours: Microbiology 03/01/20 19:45 Aerobic Blood Culture - Preliminary Blood - Venous - Lab Draw NO GROWTH AFTER 3 DAYS Anaerobic Blood Culture - Preliminary NO GROWTH AFTER 3 DAYS 03/01/20 19:20 Aerobic Blood Culture - Preliminary Blood - Venous NO GROWTH AFTER 3 DAYS Anaerobic Blood Culture - Preliminary NO GROWTH AFTER 3 DAYS Med Orders - Current: Current Medications Discontinued Medications Acetaminophen (Tylenol) 1,000 mg PO NOW ONE Stop: 03/01/20 19:30 Last Admin: 03/01/20 19:38 Dose: 1,000 mg Documented by: Albuterol/Ipratropium (Combivent Respimat) 1 gm INH Q4H PRN PRN Reason: Dyspnea Allopurinol (Zyloprim) 300 mg PO DAILY [facility] Last Admin: 03/05/20 08:39 Dose: 300 mg Documented by: Aspirin (Halfprin) 81 mg PO DAILY [facility] Last Admin: 03/05/20 08:39 Dose: 81 mg Documented by: Chlorthalidone (Chlorthalidone) 25 mg PO DAILY [facility] Dexamethasone (Dexamethasone) 8 mg IVPUSH ONETIME ONE Stop: 03/01/20 19:37 Last Admin: 03/01/20 19:41 Dose: 8 mg Documented by: Dexamethasone (Dexamethasone) Confirm Administered Dose 10 mg .ROUTE .STK-MED ONE Stop: 03/04/20 08:37 Last Admin: 03/04/20 08:47 Dose: Not Given Documented by: Dexamethasone (Dexamethasone) 6 mg IVPUSH DAILY [facility] Last Admin: 03/05/20 08:41 Dose: 6 mg Documented by: Dexamethasone Sodium Phosphate (Dexamethasone Sodium Phosphate) 6 mg IVPUSH DAILY [facility] Last Admin: 03/04/20 08:44 Dose: 6 mg Documented by: Enoxaparin Sodium (Lovenox) 40 mg SUBCUT Q24H [facility] Last Admin: 03/01/20 23:12 Dose: 40 mg Documented by: Enoxaparin Sodium (Lovenox) 40 mg SUBCUT Q12H [facility] Last Admin: 03/05/20 12:25 Dose: 40 mg Documented by: Sodium Chloride (Normal Saline) 1,000 mls @ 75 mls/hr IV ASDIRECTED [facility] Last Admin: 03/03/20 06:37 Dose: 75 mls/hr Documented by: Azithromycin 500 mg/ Sodium (Chloride) 250 mls @ 250 mls/hr IV DAILY [facility] Last Admin: 03/05/20 08:45 Dose: 250 mls/hr Documented by: Insulin Aspart (Novolog) 0 unit SUBCUT TIDAC [facility]; Protocol Last Admin: 03/05/20 12:50 Dose: 3 unit Documented by: Simvastatin (Zocor) 10 mg PO DAILY [facility] Last Admin: 03/04/20 08:23 Dose: 10 mg Documented by: Simvastatin (Zocor) 10 mg PO BEDTIME [facility] Sodium Phosphate (Neutra-Phos) 250 mg PO QID ARLYN Stop: 03/06/20 00:01 Last Admin: 03/05/20 12:25 Dose: 250 mg Documented by: Sepsis Event Note - Focused Exam Vital Signs: Vital Signs Temp Pulse Resp BP Pulse Ox 03/05/20 16:00 36.4 C 79 18 120/88 93 L 03/05/20 14:18 95 03/05/20 12:00 36.3 C 79 18 120/81 95 03/05/20 07:38 36.4 C 70 18 126/79 97 Date Exam was Performed: 03/05/20 Time Exam was Performed: 19:12 - Problem List & Annotations (1) HTN (hypertension) SNOMED Code(s): 91268493 Code(s): I10 - ESSENTIAL (PRIMARY) HYPERTENSION Status: Acute (2) Diabetes mellitus SNOMED Code(s): 75844206 Code(s): E11.9 - TYPE 2 DIABETES MELLITUS WITHOUT COMPLICATIONS Status: Acute (3) COVID-19 SNOMED Code(s): 343852055 Code(s): U07.1 - COVID-19 Status: Acute (4) Hypoxia SNOMED Code(s): 715939666 Code(s): R09.02 - HYPOXEMIA Status: Acute
[2020-03-04 07:18] LABS: BLOOD UREA NITROGEN,BUN 20 mg/dL (7.0-18.0); CARBON DIOXIDE,CO2 29.2 mmol/L (21.0-32.0); CHLORIDE,CL 99 mmol/L (98-107); GLUCOSE RANDOM 218 mg/dL (74-106); POTASSIUM,K 4.1 mmol/L (3.5-5.1); SODIUM,NA 133 mmol/L (136-148)
[2020-03-04] MEDS: Insulin Aspart 100 Units/ML 3 ML Pen SUBCUT SCH ×3 (08:21→18:00)
[2020-03-04] MEDS: Simvastatin 10 MG Tab PO SCH (08:23)
[2020-03-04] MEDS: Allopurinol 300 MG Tab PO SCH (08:23)
[2020-03-04] MEDS: Aspirin 81 MG Tab.EC PO SCH (08:23)
[2020-03-04] MEDS: Azithromycin 500 MG in Sodium Chloride 0.9% 250 ML IV SCH (08:24)
[2020-03-04] MEDS ORDERED: Dexamethasone 10 MG/ML SDV ONE (08:36)
--- NOTE | 2020-03-04 11:03 | PCM.PN ---
- General Info Date of Service: 03/04/20 Admission Dx/Problem (Free Text): Admission Diagnosis/Problem Admission Diagnosis/Problem Hypoxia Subjective Update: No complaints at bedside this morning. Reports no fevers, chills, chest pain, nausea, vomiting, abdominal pain or diarrhea. - Review of Systems General: Denies: Fever, Weakness, Fatigue Pulmonary: Denies: Shortness of Breath, Pleuritic Chest Pain Cardiovascular: Denies: Chest Pain, Palpitations Gastrointestinal: Denies: Abdominal Pain, Constipation Genitourinary: Denies: Dysuria, Frequency Musculoskeletal: Denies: Neck Pain, Shoulder Pain, Arm Pain Skin: Denies: Cyanosis, Jaundice - Patient Data Vitals - Most Recent: Last Vital Signs Temp 36.2 C 03/04/20 08:00 Pulse 86 03/04/20 08:00 Resp 16 03/04/20 08:00 BP 119/83 03/04/20 08:00 Pulse Ox 95 03/04/20 10:00 Weight - Most Recent: 127 kg I&O - Last 24 Hours: Intake & Output 03/03/20 03/04/20 03/04/20 22:59 06:59 14:59 Intake Total 2383 850 260 Output Total 920 1225 Balance 1463 -375 260 Lab Results Last 24 Hours: Laboratory Results - last 24 hr 03/03/20 03/03/20 03/03/20 Range/Units 12:25 13:22 18:07 WBC (4.0-11.0) K/uL RBC (4.50-5.90) M/uL Hgb (13.0-17.0) g/dL Hct (38.0-50.0) % MCV (80.0-98.0) fL MCH (27.0-32.0) pg MCHC (31.0-37.0) g/dL RDW Std Deviation (28.0-62.0) fl RDW Coeff of Brianna (11.0-15.0) % Plt Count (150-400) K/uL MPV (7.40-12.00) fL Neut % (Auto) (48.0-80.0) % Lymph % (Auto) (16.0-40.0) % [place] % (Auto) (0.0-15.0) % Eos % (Auto) (0.0-7.0) % Baso % (Auto) (0.0-1.5) % Neut # (Auto) (1.4-5.7) K/uL Lymph # (Auto) (0.6-2.4) K/uL [place] # (Auto) (0.0-0.8) K/uL Eos # (Auto) (0.0-0.7) K/uL Baso # (Auto) (0.0-0.1) K/uL Sodium (136-148) mmol/L Potassium (3.5-5.1) mmol/L Chloride (98-107) mmol/L Carbon Dioxide (21.0-32.0) mmol/L BUN (7.0-18.0) mg/dL Creatinine (0.8-1.3) mg/dL Est Cr Clr Drug Dosing mL/min Estimated GFR (MDRD) ml/min Glucose (74-106) mg/dL POC Glucose 249 H 266 H (60-110) mg/dL Calcium (8.5-10.1) mg/dL Total Bilirubin (0.2-1.0) mg/dL AST (15-37) IU/L ALT (14-63) IU/L Alkaline Phosphatase (46-116) U/L Troponin I < 0.050 (0.000-0.056) ng/mL Total Protein (6.4-8.2) g/dL Albumin (3.4-5.0) g/dL Globulin (2.6-4.0) g/dL Albumin/Globulin Ratio (0.9-1.6) 03/04/20 03/04/20 03/04/20 Range/Units 06:43 06:43 06:52 WBC 8.41 (4.0-11.0) K/uL RBC 4.23 L (4.50-5.90) M/uL Hgb 13.7 (13.0-17.0) g/dL Hct 39.6 (38.0-50.0) % MCV 93.6 (80.0-98.0) fL MCH 32.4 H (27.0-32.0) pg MCHC 34.6 (31.0-37.0) g/dL RDW Std Deviation 42.7 (28.0-62.0) fl RDW Coeff of Brianna 13 (11.0-15.0) % Plt Count 282 (150-400) K/uL MPV 9.40 (7.40-12.00) fL Neut % (Auto) 79.1 (48.0-80.0) % Lymph % (Auto) 10.8 L (16.0-40.0) % [place] % (Auto) 9.9 (0.0-15.0) % Eos % (Auto) 0.1 (0.0-7.0) % Baso % (Auto) 0.1 (0.0-1.5) % Neut # (Auto) 6.7 H (1.4-5.7) K/uL Lymph # (Auto) 0.9 (0.6-2.4) K/uL [place] # (Auto) 0.8 (0.0-0.8) K/uL Eos # (Auto) 0.0 (0.0-0.7) K/uL Baso # (Auto) 0.0 (0.0-0.1) K/uL Sodium 133 L (136-148) mmol/L Potassium 4.1 (3.5-5.1) mmol/L Chloride 99 (98-107) mmol/L Carbon Dioxide 29.2 (21.0-32.0) mmol/L BUN 20 H (7.0-18.0) mg/dL Creatinine 1.1 (0.8-1.3) mg/dL Est Cr Clr Drug Dosing 73.92 mL/min Estimated GFR (MDRD) > 60.0 ml/min Glucose 218 H (74-106) mg/dL POC Glucose 216 H (60-110) mg/dL Calcium 8.1 L (8.5-10.1) mg/dL Total Bilirubin 0.4 (0.2-1.0) mg/dL AST 26 (15-37) IU/L ALT 38 (14-63) IU/L Alkaline Phosphatase 54 (46-116) U/L Troponin I (0.000-0.056) ng/mL Total Protein 6.4 (6.4-8.2) g/dL Albumin 2.9 L (3.4-5.0) g/dL Globulin 3.5 (2.6-4.0) g/dL Albumin/Globulin Ratio 0.8 L (0.9-1.6) Reymundo Results Last 24 Hours: Microbiology 03/01/20 19:45 Aerobic Blood Culture - Preliminary Blood - Venous - Lab Draw NO GROWTH AFTER 2 DAYS Anaerobic Blood Culture - Preliminary NO GROWTH AFTER 2 DAYS 03/01/20 19:20 Aerobic Blood Culture - Preliminary Blood - Venous NO GROWTH AFTER 2 DAYS Anaerobic Blood Culture - Preliminary NO GROWTH AFTER 2 DAYS Med Orders - Current: Current Medications Albuterol/Ipratropium (Combivent Respimat) 1 gm INH Q4H PRN PRN Reason: Dyspnea Allopurinol (Zyloprim) 300 mg PO DAILY [facility] Last Admin: 03/04/20 08:23 Dose: 300 mg Documented by: Aspirin (Halfprin) 81 mg PO DAILY [facility] Last Admin: 03/04/20 08:23 Dose: 81 mg Documented by: Dexamethasone Sodium Phosphate (Dexamethasone Sodium Phosphate) 6 mg IVPUSH DAILY [facility] Last Admin: 03/04/20 08:44 Dose: 6 mg Documented by: Enoxaparin Sodium (Lovenox) 40 mg SUBCUT Q12H [facility] Last Admin: 03/03/20 23:06 Dose: 40 mg Documented by: Azithromycin 500 mg/ Sodium (Chloride) 250 mls @ 250 mls/hr IV DAILY [facility] Last Admin: 03/04/20 08:24 Dose: 250 mls/hr Documented by: Insulin Aspart (Novolog) 0 unit SUBCUT TIDAC [facility]; Protocol Last Admin: 03/04/20 08:21 Dose: 2 unit Documented by: Simvastatin (Zocor) 10 mg PO DAILY [facility] Last Admin: 03/04/20 08:23 Dose: 10 mg Documented by: Discontinued Medications Acetaminophen (Tylenol) 1,000 mg PO NOW ONE Stop: 03/01/20 19:30 Last Admin: 03/01/20 19:38 Dose: 1,000 mg Documented by: Chlorthalidone (Chlorthalidone) 25 mg PO DAILY [facility] Dexamethasone (Dexamethasone) 8 mg IVPUSH ONETIME ONE Stop: 03/01/20 19:37 Last Admin: 03/01/20 19:41 Dose: 8 mg Documented by: Dexamethasone (Dexamethasone) Confirm Administered Dose 10 mg .ROUTE .STK-MED ONE Stop: 03/04/20 08:37 Last Admin: 03/04/20 08:47 Dose: Not Given Documented by: Enoxaparin Sodium (Lovenox) 40 mg SUBCUT Q24H [facility] Last Admin: 03/01/20 23:12 Dose: 40 mg Documented by: Sodium Chloride (Normal Saline) 1,000 mls @ 75 mls/hr IV ASDIRECTED [facility] Last Admin: 03/03/20 06:37 Dose: 75 mls/hr Documented by: - Exam Quality Assessment: Supplemental Oxygen General: Alert, Oriented Lungs: Clear to Auscultation, Normal Respiratory Effort Cardiovascular: Regular Rate, Regular Rhythm, No Murmurs GI/Abdominal Exam: Normal Bowel Sounds, Soft, Non-Tender Sepsis Event Note - Evaluation Sepsis Screening Result: No Definite Risk - Focused Exam Vital Signs: Vital Signs Temp Pulse Resp BP BP Pulse Ox Pulse Ox 03/04/20 10:00 95 03/04/20 08:00 36.2 C 86 16 119/83 95 95 03/04/20 04:10 35.8 C L 87 20 103/74 94 L 03/03/20 23:10 36.6 C 77 20 114/76 92 L Date Exam was Performed: 03/04/20 Time Exam was Performed: 11:02 - Problem List & Annotations (1) HTN (hypertension) SNOMED Code(s): 55865094 Code(s): I10 - ESSENTIAL (PRIMARY) HYPERTENSION Status: Acute Current Visit: Yes (2) Diabetes mellitus SNOMED Code(s): 96916415 Code(s): E11.9 - TYPE 2 DIABETES MELLITUS WITHOUT COMPLICATIONS Status: Acute Current Visit: Yes (3) COVID-19 SNOMED Code(s): 703085339 Code(s): U07.1 - COVID-19 Status: Acute Current Visit: Yes (4) Hypoxia SNOMED Code(s): 817178084 Code(s): R09.02 - HYPOXEMIA Status: Acute Current Visit: Yes - Problem List Review Problem List Initiated/Reviewed/Updated: Yes - Plan Plan:: 60 y/o M admitted for hypoxic respiratory failure due to COVID-19 cont supplemental oxygen via Nasal cannula, has been titrated down to 1.5 lts Pulse oxy as needed Dexamethasone 6mg daily Lovenox 40 Q12H Hold Lisinopril for now cont IV azithromycin Monitor and replete electrolytes as needed SSI for DM DuoNebs INH as needed Prone positing
[2020-03-04] MEDS: Enoxaparin 40 MG/0.4 ML Syringe SUBCUT SCH ×2 (12:34→23:29)
[2020-03-05 06:53] LABS: BLOOD UREA NITROGEN,BUN 18 mg/dL (7.0-18.0); CARBON DIOXIDE,CO2 29.4 mmol/L (21.0-32.0); CHLORIDE,CL 99 mmol/L (98-107); GLUCOSE RANDOM 220 mg/dL (74-106); POTASSIUM,K 3.7 mmol/L (3.5-5.1); SODIUM,NA 132 mmol/L (136-148)
[2020-03-05] MEDS: Insulin Aspart 100 Units/ML 3 ML Pen SUBCUT SCH ×2 (07:41→12:50)
[2020-03-05] MEDS: Phosphorus #1 250 MG Tab PO SCH ×2 (08:39→12:25)
[2020-03-05] MEDS: Aspirin 81 MG Tab.EC PO SCH (08:39)
[2020-03-05] MEDS: Allopurinol 300 MG Tab PO SCH (08:39)
[2020-03-05] MEDS: Azithromycin 500 MG in Sodium Chloride 0.9% 250 ML IV SCH (08:45)
[2020-03-05] MEDS ORDERED: Dexamethasone 10 MG/ML SDV IVPUSH SCH (09:00)
[2020-03-05 12:21] VITALS: PULSE 79
[2020-03-05] MEDS: Enoxaparin 40 MG/0.4 ML Syringe SUBCUT SCH (12:25)
--- NOTE | 2020-03-05 15:02 | PCM.DCSUM1 ---
<Ezra Lopez - Last Filed: 03/05/20 14:58> Discharge Summary - Hospital Course Free Text/Narrative:: 60-year-old male admitted for acute hypoxic respiratory failure secondary to viral pneumonia. COVID 19 test positive. He has a PMH of hyperlipemia, DM type 2, HTN and gout. Patient was started on supplemental oxygen, IV azithromycin, IV dexamethasone, and Duonebs INH prn. Blood cultures were negative. CXR showed b/l interstitial opacities. Patient was steadily weaned off of supplemental oxygen during his stay and on day of discharge was weaned to room air successfully. Patient reported significant improvement in his breathing. He was discharged in stable condition and given script for PO azithromycin x 1 day and PO dexamethasone 6 mg x 6 more days. Advised to self-quarantine for a total of 14 days since testing positive for COVID19 initially. Patient verbalized understanding. - Discharge Data Discharge Date: 03/05/20 Discharge Disposition: Home, Self-Care 01 Condition: Stable - Referral to Home Health Primary Care Physician: Darrian Barrera MD - Patient Instructions Diet: Diabetic Diet Activity: As Tolerated Notify Provider of: Fever, Increased Pain, Swelling and Redness, Drainage, Nausea and/or Vomiting - Discharge Plan *PRESCRIPTION DRUG MONITORING PROGRAM REVIEWED*: Not Applicable *COPY OF PRESCRIPTION DRUG MONITORING REPORT IN PATIENT AUDREY: Not Applicable Prescriptions/Med Rec: Azithromycin 500 mg PO DAILY 1 Days #1 tablet dexAMETHasone [Dexamethasone] 6 mg PO DAILY 6 Days #6 tab Home Medications: Home Meds Lisinopril 10 mg PO DAILY 02/20/15 [History] metFORMIN HCl [Metformin HCl] 1,000 mg PO BID 02/20/15 [History] Chlorthalidone 25 mg PO DAILY 08/24/17 [History] Empagliflozin [Jardiance] 25 mg PO ACBREAKFAST 12/10/18 [History] allopurinoL [Zyloprim] 300 mg PO DAILY 12/10/18 [History] Glimepiride 2 mg PO DAILY 02/28/20 [History] Ozempic 0.25 mg SUBCUT WEEKLY 03/01/20 [History] Dulaglutide [Trulicity] 1.5 mg SQ WEEKLY 03/02/20 [History] Simvastatin 10 mg PO BEDTIME 03/02/20 [History] Azithromycin 500 mg PO DAILY 1 Days #1 tablet 03/05/20 [Rx] dexAMETHasone [Dexamethasone] 6 mg PO DAILY 6 Days #6 tab 03/05/20 [Rx] Oxygen Therapy Mode: Room Air Patient Handouts: COVID-19 Frequently Asked Questions, COVID-19, Azithromycin tablets, Dexamethasone tablets, Prevent the Spread of COVID-19 if You Are Sick - [facility] Referrals: Darrian Barrera MD [Primary Care Provider] - 03/13/20 2:00 pm (A tele-appointment has been made for you. Please go to [facility]. Zoom call #[phone] Please check in 15-30 minutes prior to your appointment. ) - Discharge Summary/Plan Comment DC Time >30 min.: No - Patient Data Vitals - Most Recent: Last Vital Signs Temp 36.3 C 03/05/20 12:00 Pulse 79 03/05/20 12:00 Resp 18 03/05/20 12:00 BP 120/81 03/05/20 12:00 Pulse Ox 95 03/05/20 14:18 Weight - Most Recent: 127 kg I&O - Last 24 hours: Intake & Output 03/04/20 03/05/20 03/05/20 22:59 06:59 14:59 Intake Total 2500 450 Output Total 1275 1400 Balance 1225 -950 Lab Results - Last 24 hrs: Laboratory Results - last 24 hr 03/04/20 03/05/20 03/05/20 Range/Units 17:58 06:30 06:30 WBC 7.18 (4.0-11.0) K/uL RBC 4.19 L (4.50-5.90) M/uL Hgb 13.4 (13.0-17.0) g/dL Hct 39.1 (38.0-50.0) % MCV 93.3 (80.0-98.0) fL MCH 32.0 (27.0-32.0) pg MCHC 34.3 (31.0-37.0) g/dL RDW Std Deviation 42.0 (28.0-62.0) fl RDW Coeff of Brianna 13 (11.0-15.0) % Plt Count 281 (150-400) K/uL MPV 9.10 (7.40-12.00) fL Add Manual Diff YES Neutrophils % (Manual) 79 (48.0-80.0) % Band Neutrophils % 2 % Lymphocytes % (Manual) 13 L (16.0-40.0) % Monocytes % (Manual) 5 (0.0-15.0) % Absolute Seg Neuts 5.7 (1.4-5.7) Band Neutrophils # 0.1 Lymphocytes # (Manual) 0.9 (0.6-2.4) Monocytes # (Manual) 0.4 (0.0-0.8) Sodium 132 L (136-148) mmol/L Potassium 3.7 (3.5-5.1) mmol/L Chloride 99 (98-107) mmol/L Carbon Dioxide 29.4 (21.0-32.0) mmol/L BUN 18 (7.0-18.0) mg/dL Creatinine 1.0 (0.8-1.3) mg/dL Est Cr Clr Drug Dosing 81.31 mL/min Estimated GFR (MDRD) > 60.0 ml/min Glucose 220 H (74-106) mg/dL POC Glucose 308 H (60-110) mg/dL Calcium 7.9 L (8.5-10.1) mg/dL Phosphorus 2.2 L (2.6-4.7) mg/dL Magnesium 1.8 (1.8-2.4) mg/dL Albumin (3.4-5.0) g/dL 03/05/20 03/05/20 03/05/20 Range/Units 06:30 06:31 12:24 WBC (4.0-11.0) K/uL RBC (4.50-5.90) M/uL Hgb (13.0-17.0) g/dL Hct (38.0-50.0) % MCV (80.0-98.0) fL MCH (27.0-32.0) pg MCHC (31.0-37.0) g/dL RDW Std Deviation (28.0-62.0) fl RDW Coeff of Brianna (11.0-15.0) % Plt Count (150-400) K/uL MPV (7.40-12.00) fL Add Manual Diff Neutrophils % (Manual) (48.0-80.0) % Band Neutrophils % % Lymphocytes % (Manual) (16.0-40.0) % Monocytes % (Manual) (0.0-15.0) % Absolute Seg Neuts (1.4-5.7) Band Neutrophils # Lymphocytes # (Manual) (0.6-2.4) Monocytes # (Manual) (0.0-0.8) Sodium (136-148) mmol/L Potassium (3.5-5.1) mmol/L Chloride (98-107) mmol/L Carbon Dioxide (21.0-32.0) mmol/L BUN (7.0-18.0) mg/dL Creatinine (0.8-1.3) mg/dL Est Cr Clr Drug Dosing mL/min Estimated GFR (MDRD) ml/min Glucose (74-106) mg/dL POC Glucose 196 H 283 H (60-110) mg/dL Calcium (8.5-10.1) mg/dL Phosphorus (2.6-4.7) mg/dL Magnesium (1.8-2.4) mg/dL Albumin 2.8 L (3.4-5.0) g/dL [facility]IC[facility] Results - Last 24 hrs: Microbiology 03/01/20 19:45 Aerobic Blood Culture - Preliminary Blood - Venous - Lab Draw NO GROWTH AFTER 3 DAYS Anaerobic Blood Culture - Preliminary NO GROWTH AFTER 3 DAYS 03/01/20 19:20 Aerobic Blood Culture - Preliminary Blood - Venous NO GROWTH AFTER 3 DAYS Anaerobic Blood Culture - Preliminary NO GROWTH AFTER 3 DAYS Med Orders - Current: Current Medications Albuterol/Ipratropium (Combivent Respimat) 1 gm INH Q4H PRN PRN Reason: Dyspnea Allopurinol (Zyloprim) 300 mg PO DAILY [facility] Last Admin: 03/05/20 08:39 Dose: 300 mg Documented by: Aspirin (Halfprin) 81 mg PO DAILY [facility] Last Admin: 03/05/20 08:39 Dose: 81 mg Documented by: Dexamethasone (Dexamethasone) 6 mg IVPUSH DAILY [facility] Last Admin: 03/05/20 08:41 Dose: 6 mg Documented by: Enoxaparin Sodium (Lovenox) 40 mg SUBCUT Q12H [facility] Last Admin: 03/05/20 12:25 Dose: 40 mg Documented by: Azithromycin 500 mg/ Sodium (Chloride) 250 mls @ 250 mls/hr IV DAILY [facility] Last Admin: 03/05/20 08:45 Dose: 250 mls/hr Documented by: Insulin Aspart (Novolog) 0 unit SUBCUT TIDAC [facility]; Protocol Last Admin: 03/05/20 12:50 Dose: 3 unit Documented by: Simvastatin (Zocor) 10 mg PO BEDTIME [facility] Sodium Phosphate (Neutra-Phos) 250 mg PO QID [facility] Stop: 03/06/20 00:01 Last Admin: 03/05/20 12:25 Dose: 250 mg Documented by: Discontinued Medications Acetaminophen (Tylenol) 1,000 mg PO NOW ONE Stop: 03/01/20 19:30 Last Admin: 03/01/20 19:38 Dose: 1,000 mg Documented by: Chlorthalidone (Chlorthalidone) 25 mg PO DAILY [facility] Dexamethasone (Dexamethasone) 8 mg IVPUSH ONETIME ONE Stop: 03/01/20 19:37 Last Admin: 03/01/20 19:41 Dose: 8 mg Documented by: Dexamethasone (Dexamethasone) Confirm Administered Dose 10 mg .ROUTE .STK-MED ONE Stop: 03/04/20 08:37 Last Admin: 03/04/20 08:47 Dose: Not Given Documented by: Dexamethasone Sodium Phosphate (Dexamethasone Sodium Phosphate) 6 mg IVPUSH DAILY [facility] Last Admin: 03/04/20 08:44 Dose: 6 mg Documented by: Enoxaparin Sodium (Lovenox) 40 mg SUBCUT Q24H [facility] Last Admin: 03/01/20 23:12 Dose: 40 mg Documented by: Sodium Chloride (Normal Saline) 1,000 mls @ 75 mls/hr IV ASDIRECTED [facility] Last Admin: 03/03/20 06:37 Dose: 75 mls/hr Documented by: Simvastatin (Zocor) 10 mg PO DAILY [facility] Last Admin: 03/04/20 08:23 Dose: 10 mg Documented by: <Enrique Alicia - Last Filed: 03/05/20 19:06> Discharge Summary - Hospital Course Free Text/Narrative:: I have seen and evaluated the patient and agree with the residents note unless specified in my note - Referral to Home Health Primary Care Physician: Darrian Barrera MD - Discharge Diagnosis/Problem(s) (1) HTN (hypertension) SNOMED Code(s): 40788751 ICD Code: I10 - ESSENTIAL (PRIMARY) HYPERTENSION Status: Acute (2) Diabetes mellitus SNOMED Code(s): 28824731 ICD Code: E11.9 - TYPE 2 DIABETES MELLITUS WITHOUT COMPLICATIONS Status: Acute (3) COVID-19 SNOMED Code(s): 635889407 ICD Code: U07.1 - COVID-19 Status: Acute (4) Hypoxia SNOMED Code(s): 488136383 ICD Code: R09.02 - HYPOXEMIA Status: Acute - Patient Data Vitals - Most Recent: Last Vital Signs Temp 36.4 C 03/05/20 16:00 Pulse 79 03/05/20 16:00 Resp 18 03/05/20 16:00 BP 120/88 03/05/20 16:00 Pulse Ox 93 L 03/05/20 16:00 I&O - Last 24 hours: Intake & Output 03/05/20 03/05/20 03/05/20 06:59 14:59 22:59 Intake Total 450 850 Output Total 1400 400 Balance -950 450 Lab Results - Last 24 hrs: Laboratory Results - last 24 hr 03/05/20 03/05/20 03/05/20 Range/Units 06:30 06:30 06:30 WBC 7.18 (4.0-11.0) K/uL RBC 4.19 L (4.50-5.90) M/uL Hgb 13.4 (13.0-17.0) g/dL Hct 39.1 (38.0-50.0) % MCV 93.3 (80.0-98.0) fL MCH 32.0 (27.0-32.0) pg MCHC 34.3 (31.0-37.0) g/dL RDW Std Deviation 42.0 (28.0-62.0) fl RDW Coeff of Brianna 13 (11.0-15.0) % Plt Count 281 (150-400) K/uL MPV 9.10 (7.40-12.00) fL Add Manual Diff YES Neutrophils % (Manual) 79 (48.0-80.0) % Band Neutrophils % 2 % Lymphocytes % (Manual) 13 L (16.0-40.0) % Monocytes % (Manual) 5 (0.0-15.0) % Absolute Seg Neuts 5.7 (1.4-5.7) Band Neutrophils # 0.1 Lymphocytes # (Manual) 0.9 (0.6-2.4) Monocytes # (Manual) 0.4 (0.0-0.8) Sodium 132 L (136-148) mmol/L Potassium 3.7 (3.5-5.1) mmol/L Chloride 99 (98-107) mmol/L Carbon Dioxide 29.4 (21.0-32.0) mmol/L BUN 18 (7.0-18.0) mg/dL Creatinine 1.0 (0.8-1.3) mg/dL Est Cr Clr Drug Dosing 81.31 mL/min Estimated GFR (MDRD) > 60.0 ml/min Glucose 220 H (74-106) mg/dL POC Glucose (60-110) mg/dL Calcium 7.9 L (8.5-10.1) mg/dL Phosphorus 2.2 L (2.6-4.7) mg/dL Magnesium 1.8 (1.8-2.4) mg/dL Albumin 2.8 L (3.4-5.0) g/dL 03/05/20 03/05/20 Range/Units 06:31 12:24 WBC (4.0-11.0) K/uL RBC (4.50-5.90) M/uL Hgb (13.0-17.0) g/dL Hct (38.0-50.0) % MCV (80.0-98.0) fL MCH (27.0-32.0) pg MCHC (31.0-37.0) g/dL RDW Std Deviation (28.0-62.0) fl RDW Coeff of Brianna (11.0-15.0) % Plt Count (150-400) K/uL MPV (7.40-12.00) fL Add Manual Diff Neutrophils % (Manual) (48.0-80.0) % Band Neutrophils % % Lymphocytes % (Manual) (16.0-40.0) % Monocytes % (Manual) (0.0-15.0) % Absolute Seg Neuts (1.4-5.7) Band Neutrophils # Lymphocytes # (Manual) (0.6-2.4) Monocytes # (Manual) (0.0-0.8) Sodium (136-148) mmol/L Potassium (3.5-5.1) mmol/L Chloride (98-107) mmol/L Carbon Dioxide (21.0-32.0) mmol/L BUN (7.0-18.0) mg/dL Creatinine (0.8-1.3) mg/dL Est Cr Clr Drug Dosing mL/min Estimated GFR (MDRD) ml/min Glucose (74-106) mg/dL POC Glucose 196 H 283 H (60-110) mg/dL Calcium (8.5-10.1) mg/dL Phosphorus (2.6-4.7) mg/dL Magnesium (1.8-2.4) mg/dL Albumin (3.4-5.0) g/dL [facility] Results - Last 24 hrs: Microbiology 03/01/20 19:45 Aerobic Blood Culture - Preliminary Blood - Venous - Lab Draw NO GROWTH AFTER 3 DAYS Anaerobic Blood Culture - Preliminary NO GROWTH AFTER 3 DAYS 03/01/20 19:20 Aerobic Blood Culture - Preliminary Blood - Venous NO GROWTH AFTER 3 DAYS Anaerobic Blood Culture - Preliminary NO GROWTH AFTER 3 DAYS Med Orders - Current: Current Medications Discontinued Medications Acetaminophen (Tylenol) 1,000 mg PO NOW ONE Stop: 03/01/20 19:30 Last Admin: 03/01/20 19:38 Dose: 1,000 mg Documented by: Albuterol/Ipratropium (Combivent Respimat) 1 gm INH Q4H PRN PRN Reason: Dyspnea Allopurinol (Zyloprim) 300 mg PO DAILY [facility] Last Admin: 03/05/20 08:39 Dose: 300 mg Documented by: Aspirin (Halfprin) 81 mg PO DAILY [facility] Last Admin: 03/05/20 08:39 Dose: 81 mg Documented by: Chlorthalidone (Chlorthalidone) 25 mg PO DAILY [facility] Dexamethasone (Dexamethasone) 8 mg IVPUSH ONETIME ONE Stop: 03/01/20 19:37 Last Admin: 03/01/20 19:41 Dose: 8 mg Documented by: Dexamethasone (Dexamethasone) Confirm Administered Dose 10 mg .ROUTE .STK-MED ONE Stop: 03/04/20 08:37 Last Admin: 03/04/20 08:47 Dose: Not Given Documented by: Dexamethasone (Dexamethasone) 6 mg IVPUSH DAILY [facility] Last Admin: 03/05/20 08:41 Dose: 6 mg Documented by: Dexamethasone Sodium Phosphate (Dexamethasone Sodium Phosphate) 6 mg IVPUSH DAILY [facility] Last Admin: 03/04/20 08:44 Dose: 6 mg Documented by: Enoxaparin Sodium (Lovenox) 40 mg SUBCUT Q24H [facility] Last Admin: 03/01/20 23:12 Dose: 40 mg Documented by: Enoxaparin Sodium (Lovenox) 40 mg SUBCUT Q12H [facility] Last Admin: 03/05/20 12:25 Dose: 40 mg Documented by: Sodium Chloride (Normal Saline) 1,000 mls @ 75 mls/hr IV ASDIRECTED [facility] Last Admin: 03/03/20 06:37 Dose: 75 mls/hr Documented by: Azithromycin 500 mg/ Sodium (Chloride) 250 mls @ 250 mls/hr IV DAILY [facility] Last Admin: 03/05/20 08:45 Dose: 250 mls/hr Documented by: Insulin Aspart (Novolog) 0 unit SUBCUT TIDAC [facility]; Protocol Last Admin: 03/05/20 12:50 Dose: 3 unit Documented by: Simvastatin (Zocor) 10 mg PO DAILY [facility] Last Admin: 03/04/20 08:23 Dose: 10 mg Documented by: Simvastatin (Zocor) 10 mg PO BEDTIME [facility] Sodium Phosphate (Neutra-Phos) 250 mg PO QID [facility] Stop: 03/06/20 00:01 Last Admin: 03/05/20 12:25 Dose: 250 mg Documented by:
[2020-03-05 17:25] VITALS: BP 120/88
[2020-03-05] MEDS ORDERED: Simvastatin 10 MG Tab PO SCH (21:00)
== END 2020-03-05 17:25 | disposition home or self-care (01) | DRG 137 ==
LOC: MW.ED 18:53 → MW.MS 20:44
PROVIDERS: ADMIT Student in an Organized Health Care Education/Training Program; ATTEND Student in an Organized Health Care Education/Training Program
PROC: 8E0ZXY6 Isolation (ICD-10-PCS; principal; 2020-03-01)
DX: U07.1 COVID-19 (principal); J12.89 Other viral pneumonia; J96.01 Acute respiratory failure with hypoxia; N17.9 Acute kidney failure, unspecified; E78.5 Hyperlipidemia, unspecified; E11.9 Type 2 diabetes mellitus without complications; I10 Essential (primary) hypertension; M10.9 Gout, unspecified; Z79.84 Long term (current) use of oral hypoglycemic drugs; Z79.899 Other long term (current) drug therapy
CPT/HCPCS: 36415; 36600; 71045; 71045-26; 80048; 80053; 82040; 82803; 82962; 83605; 83735; 83880; 84100; 84145; 84484; 85025; 85379; 85610; 85652; 85730; 86140; 87040; 93005; 96374; 99284-25; A9270-GY; J0456; J1100; J1650; J1815-GY; J7030; J7050; U0002

== ENCOUNTER 2020-05-13 11:50 | Emergency (ER) | payer BC, OTHER ==
[2020-05-13] MEDS ORDERED: Orphenadrine 60 MG/2 ML Inj IM ONE (12:19)
[2020-05-13] MEDS ORDERED: methylPREDNISolone Sodium Succinate 125 MG/2 ML SDV IM ONE (12:19)
--- NOTE | 2020-05-13 12:21 | EDM.PDOC ---
ED HPI GENERAL MEDICAL PROBLEM - General Chief Complaint: Back Pain or Injury Stated Complaint: LOWER BACK ISSUES Time Seen by Provider: 05/13/20 11:59 Source of Information: Reports: Patient History Limitations: Reports: No Limitations - History of Present Illness INITIAL COMMENTS - FREE TEXT/NARRATIVE: HISTORY AND PHYSICAL: History of present illness: Patient is a 60-year-old male who presents to the emergency room with complaints of low back pain that radiates down the left glute and posterior thigh. He states he has had back pain with sciatica in the past although it has not bothered him in several years. He did see a chiropractor earlier this week but states he did not get much relief. He denies any injury, trauma or falls. He denies any weakness, numbness or tingling of the extermity. Patient denies any fever, chills, headache, change in vision, syncope or near syncope. Denies any chest pain, shortness of breath or cough. Denies any abdominal pain, nausea, vomiting, diarrhea, constipation or dysuria. Denies any testicular pain, redness, swelling. Has not noted any blood in urine or stool. Patient has been eating and drinking appropriately. No recent viral illness or travel. Review of systems: As per history of present illness and below otherwise all systems reviewed and negative. Past medical history: As per history of present illness and as reviewed below otherwise noncontributory. Surgical history: As per history of present illness and as reviewed below otherwise noncontributory. Social history: See social history for further information Family history: As per history of present illness and as reviewed below otherwise noncontributory. Physical exam: General: Well developed and well nourished 60 year old male. Alert and orientat ed x 3. Nontoxic in appearance and in no acute distress. Vital signs are stable and have been reviewed by me. Nursing notes were reviewed. HEENT: Atraumatic, normocephalic, pupils equal and reactive bilaterally, negative for conjunctival pallor or scleral icterus, mucous membranes moist, trachea midline. No drooling or trismus noted. No meningeal signs. No hot potato voice noted. Lungs: Clear to auscultation, breath sounds equal bilaterally, chest nontender. Normal work of breathing, no accessory muscles used. Heart: S1S2, regular rate and rhythm without overt murmur Abdomen: Soft, nondistended, nontender. Negative for masses or hepatosplenomegaly. Negative for costovertebral tenderness. Pelvis: Stable nontender. C-spine/Back: No pinpoint vertebral tenderness upon palpation. No crepitus, step-offs or obvious deformities. Muscluar pain with palpation of left mid lumbar back region into the glute. Patient is ambulatory into the emergency room without difficulty or deficit. Able to rock back on heels and walk on toes. Good flexion and extension at the waist/trunk. Denies any urinary or fecal incontinence. Denies any numbness, tingling or saddle paresthesia. No concerns of serious infection, fracture or cord compression, or cauda equina syndrome. Deep tendon reflexes brisk bilaterally. Skin: Intact, warm, dry. No lesions or rashes noted. Hematologic: No petechiae or purpra. Mucosa appropriate color and normal nail bed color and refill. Extremities: Atraumatic, moves all extremities per self without difficulty or deficits, negative for cords or calf pain. Neurovascular unremarkable. Neuro: Awake, alert, oriented. Cranial nerves II through XII unremarkable. Cerebellum unremarkable. Motor and sensory unremarkable throughout. Exam nonfocal. Psychiatric: Mood and affect are appropriate. Normal thought process. Answering questions appropriately. Notes: We discussed imaging; at this time I do not feel its warranted. Patient feels improved after the IM injections. I have spoken with the patient/caregiver and discussed today's findings, in addition to providing specific details for plan of care. Reassessment at the time of disposition demonstrates that the patient is in no acute distress. The patient has remained stable throughout the entire ED visit and is without objective evidence for acute process requiring urgent intervention or hospitalization. The patient is stable for discharge, counseling was provided and we discussed in great detail signs and symptoms that would prompt them to return to the Emergency Department. Medication, follow up and supportive care measures were reviewed and discussed. Voices understanding and is agreeable to plan of care. Denies any further questions or concerns at this time. Diagnostics: None Therapeutics: Toradol, Norflex Prescription: Diclofenac, Flexeril Impression: Back pain with sciatica Plan: 1. The medication you received today does cause drowsiness, so do not drive for the remaining day 2. When resting please lay on a flat firm surface. Limit your immobility to prevent muscle stiffness. Get up to ambulate/move around/gentle stretching multiple times throughout the day. May alternate heat and ice to the painful areas 3. Tylenol as needed for back pain. Otherwise take the prescribed Flexeril and diclofenac as directed. Diclofenac is an anti-inflammatory so do not take any additional NSAIDs with this medication, such as ibuprofen or Aleve. Flexeril as a muscle relaxant, this medication may cause drowsiness a do not take it will driving her needing to be functioning outside of the house. 4. Please follow-up with your primary care provider as we discussed. If your symptoms should worsen, new symptoms develop or any of the signs and symptoms we discussed should arise please return to the emergency room or call 911 (if needed). Definitive disposition and diagnosis as appropriate pending reevaluation and review of above. lower back Pain Score (Numeric/FACES): 9 - Related Data Allergies Allergy/AdvReac Type Severity Reaction Status Date / Time No Known Allergies Allergy Verified 05/13/20 12:08 Home Meds: Home Meds Lisinopril 10 mg PO DAILY 02/20/15 [History] metFORMIN HCl [Metformin HCl] 1,000 mg PO BID 02/20/15 [History] Chlorthalidone 25 mg PO DAILY 08/24/17 [History] Empagliflozin [Jardiance] 25 mg PO ACBREAKFAST 12/10/18 [History] allopurinoL [Zyloprim] 300 mg PO DAILY 12/10/18 [History] Glimepiride 2 mg PO DAILY 02/28/20 [History] Ozempic 0.25 mg SUBCUT WEEKLY 03/01/20 [History] Dulaglutide [Trulicity] 1.5 mg SQ WEEKLY 03/02/20 [History] Simvastatin 10 mg PO BEDTIME 03/02/20 [History] Cyclobenzaprine [Flexeril] 10 mg PO TID PRN #21 tab 05/13/20 [Rx] Diclofenac Sodium [Voltaren] 75 mg PO BIDMEALS PRN #30 tab.cr 05/13/20 [Rx] Past Medical History HEENT History: Reports: Cataract Cardiovascular History: Reports: High Cholesterol, Hypertension Respiratory History: Reports: None Gastrointestinal History: Reports: Diverticulosis, GERD Other Gastrointestinal History: recent h/o diverticulitis, much better now Genitourinary History: Reports: Renal Calculus Musculoskeletal History: Reports: Gout Neurological History: Reports: None Psychiatric History: Reports: None Endocrine/Metabolic History: Reports: Diabetes, Type II, Obesity/BMI 30+ Hematologic History: Reports: None Immunologic History: Reports: None Oncologic (Cancer) History: Reports: None Dermatologic History: Reports: None - Infectious Disease History Infectious Disease History: Reports: Chicken Pox, Measles, Mumps, Other (See Below) Other Infectious Disease History: COVID-14 March 2020 - Past Surgical History Head Surgeries/Procedures: Reports: None HEENT Surgical History: Reports: Cataract Surgery, Oral Surgery GI Surgical History: Reports: Colonoscopy Male Surgical History: Reports: Kidney Stone Extraction, Lithotripsy ([facility]), Renal Calculus Social & Family History - Family History Family Medical History: Noncontributory - Tobacco Use Tobacco Use Status *Q: Never Tobacco User Second Hand Smoke Exposure: No - Caffeine Use Caffeine Use: Reports: None - Recreational Drug Use Recreational Drug Use: No ED ROS GENERAL - Review of Systems Review Of Systems: Comprehensive ROS is negative, except as noted in HPI. ED EXAM,LOWER BACK PAIN/INJURY - Physical Exam Exam: See Below (See dictation) Course - Vital Signs Last Recorded V/S: Last Vital Signs Temp 96.6 F L 05/13/20 12:01 Pulse 107 H 05/13/20 12:01 Resp 18 05/13/20 12:01 BP 111/17 L 05/13/20 12:01 Pulse Ox 96 05/13/20 12:01 - Orders/Labs/Meds Meds: Medications Discontinued Medications Generic Name Dose Route Start Last Admin Trade Name Freq PRN Reason Stop Dose Admin Ketorolac Tromethamine 60 mg 05/13/20 12:22 05/13/20 12:31 Toradol IM 05/13/20 12:23 60 mg ONETIME ONE Administration Methylprednisolone Sodium Succinate 125 mg 05/13/20 12:19 05/13/20 12:22 Solu-Medrol IM 05/13/20 12:20 Not Given ONETIME ONE Orphenadrine Citrate 60 mg 05/13/20 12:19 05/13/20 12:31 Norflex IM 05/13/20 12:20 60 mg ONETIME ONE Administration Departure - Departure Time of Disposition: 12:21 Disposition: Home, Self-Care 01 Clinical Impression: Lumbar back pain - Discharge Information Prescriptions: Cyclobenzaprine [Flexeril] 10 mg PO TID PRN #21 tab PRN Reason: Muscle Spasm Diclofenac Sodium [Voltaren] 75 mg PO BIDMEALS PRN #30 tab.cr PRN Reason: Pain Instructions: Sciatica, [id number] Referrals: PCP,None [Primary Care Provider] - Forms: ED Department Discharge Additional Instructions: The following information is given to patients seen in the emergency department who are being discharged to home. This information is to outline your options for follow-up care. We provide all patients seen in our emergency department with a follow-up referral. The need for follow-up, as well as the timing and circumstances, are variable depending upon the specifics of your emergency department visit. If you don't have a primary care physician on staff, we will provide you with a referral. We always advise you to contact your personal physician following an emergency department visit to inform them of the circumstance of the visit and for follow-up with them and/or the need for any referrals to a consulting specialist. The emergency department will also refer you to a specialist when appropriate. This referral assures that you have the opportunity for follow-up care with a specialist. All of these measure are taken in an effort to provide you with optimal care, which includes your follow-up. Under all circumstances we always encourage you to contact your private physician who remains a resource for coordinating your care. When calling for follow-up care, please make the office aware that this follow-up is from your recent emergency room visit. If for any reason you are refused follow-up, please contact the [facility] at and asked to speak to the emergency department charge nurse. [facility] [address] [place] [id number] [address] [address] Thank you for choosing the [facility] emergency department in [place] for your medical needs today. It was a pleasure caring for you. Today you were seen in the emergency department for back pain. 1. The medication you received today does cause drowsiness, so do not drive for the remaining day 2. When resting please lay on a flat firm surface. Limit your immobility to prevent muscle stiffness. Get up to ambulate/move around/gentle stretching multiple times throughout the day. May alternate heat and ice to the painful a reas 3. Tylenol as needed for back pain. Otherwise take the prescribed Flexeril and diclofenac as directed. Diclofenac is an anti-inflammatory so do not take any additional NSAIDs with this medication, such as ibuprofen or Aleve. Flexeril as a muscle relaxant, this medication may cause drowsiness a do not take it will driving her needing to be functioning outside of the house. 4. Please follow-up with your primary care provider as we discussed. If your symptoms should worsen, new symptoms develop or any of the signs and symptoms we discussed should arise please return to the emergency room or call 911 (if needed). Sepsis Event Note (ED) - Evaluation Sepsis Screening Result: No Definite Risk - Focused Exam Vital Signs: Vital Signs Temp Pulse Resp BP Pulse Ox 05/13/20 12:01 96.6 F L 107 H 18 111/17 L 96
[2020-05-13] MEDS ORDERED: Ketorolac 60 MG/2 ML SDV IM ONE (12:22)
[2020-05-13 19:08] VITALS: BP 103/69; PULSE 102
== END 2020-05-13 13:02 | disposition home or self-care (01) ==
LOC: MW.ED 11:50
DX: M54.42 Lumbago with sciatica, left side (principal); E78.00 Pure hypercholesterolemia, unspecified; I10 Essential (primary) hypertension; K21.9 Gastro-esophageal reflux disease without esophagitis; M10.9 Gout, unspecified; E11.9 Type 2 diabetes mellitus without complications; E66.9 Obesity, unspecified
CPT/HCPCS: 96372; 99283; J1885; J2360